=== PATIENT | male | born 1940 | race American Indian/Alaskan Native ===

== ENCOUNTER 2016-11-28 18:57 | Emergency (ER) | payer MEDICARE, MEDICAID ==
[2016-11-28] MEDS ORDERED: predniSONE 20 MG Tab PO ONE (20:11)
--- NOTE | 2016-11-28 20:19 | EDM.PDOC ---
ED HPI Trauma - General Chief Complaint: Lower Extremity Injury/Pain Stated Complaint: FOOT PAIN [id number] Time Seen by Provider: 11/28/16 19:05 Source: Reports: Patient History Limitations: Reports: No limitations - History of Present Illness INITIAL COMMENTS - FREE TEXT/NARRATIVE: c/o waking with pain to left ankle yesterday increased pain with weight bearing. Using crutches at home. Denies injury. remote fracture with hardware years ago. Has hydrocodone at home for back pain but does not want to use it. No known hx of gout Occurred When: yesterday Allergies/ADRs: Allergies No Known Allergies Allergy (Verified 11/28/16 19:17) Home Medications: Ambulatory Orders Lisinopril [Lisinopril] 1 tab PO BID 09/06/13 [Confirmed 11/28/16] Apixaban [Eliquis] 1 tab PO BID 10/14/14 [Confirmed 11/28/16] Furosemide 1 tab PO BID 10/14/14 [Confirmed 11/28/16] Amiodarone [Pacerone] 100 mg PO DAILY 08/16/15 [Confirmed 11/28/16] Metoprolol Succinate 50 mg PO BID 08/16/15 [Confirmed 11/28/16] Aspirin [[place] Aspirin] 81 mg PO DAILY 11/28/16 [Confirmed 11/28/16] Past Medical History Cardiovascular History: Reports: Hypertension Musculoskeletal History: Reports: Back pain, chronic - Past Surgical History Cardiovascular Surgical History: Reports: Other (see below) Other Cardiovascular Surgeries/Procedures: 80% occusion in artery in neck Social & Family History - Tobacco Use Smoking Status *Q: Current Every Day Smoker Years of Tobacco use: 50 Packs/Tins Daily: 20 Used Tobacco, but Quit: No Second Hand Smoke Exposure: Yes - Caffeine Use Caffeine Use: Reports: Coffee - Alcohol Use Days Per Week of Alcohol Use: 0 Number of Drinks Per Day: 1 Total Drinks Per Week: 0 Date of Last Drink: 11/07/16 - Recreational Drug Use Recreational Drug Use: No Review of Systems - Review of Systems Review Of Systems: See Below Constitutional: Reports: no symptoms Respiratory: Reports: No Symptoms Cardiovascular: Reports: no symptoms Musculoskeletal: Reports: back pain (chronic), joint pain (left ankle) Skin: Reports: no symptoms Trauma Exam - Physical Exam Exam: See Below Exam Limited By: No limitations General Appearance: Reports: alert, mild distress Head: Reports: atraumatic, normocephalic Eyes: bilateral eye: EOMI Ears: Reports: normal external exam Nose: Reports: normal inspection Throat/Mouth: Reports: Normal inspection Neck: Reports: non-tender, full range of motion Respiratory Exam: Reports: no respiratory distress, lungs clear Cardiovascular: Reports: normal peripheral pulses, regular rate, rhythm Extremities: Reports: no evidence of injury, normal range of motion, pain with movement, tenderness (left ankle), unable to bear weight, other (mild swelling warmth no redness). Denies: joint effusion Skin: Reports: Warm/dry. Denies: Ecchymosis Course - Vital Signs Last Recorded V/S: Last Vital Signs Temp 98.6 F 11/28/16 20:31 Pulse 87 11/28/16 20:31 Resp 16 11/28/16 20:31 BP 157/80 H 11/28/16 20:31 Pulse Ox 98 11/28/16 20:31 - Orders/Labs/Meds Labs: Laboratory Tests 11/28/16 11/28/16 Range/Units 19:30 19:30 WBC 8.8 (5.0-10.0) 10^3/uL RBC 3.60 L (4.6-6.2) 10^6/uL Hgb 11.2 L (14.0-18.0) g/dL Hct 34.4 L (40.0-54.0) % MCV 95.6 (80-100) fL MCH 31.1 (27.0-34.0) pg MCHC 32.6 L (33.0-35.0) g/dL Plt Count 171 (150-450) 10^3/uL Neut % (Auto) 67.8 (42.2-75.2) % Lymph % (Auto) 17.4 L (20.5-50.1) % [place] % (Auto) 13.4 H (2-8) % Eos % (Auto) 0.8 L (1.0-3.0) % Baso % (Auto) 0.6 (0.0-1.0) % Sodium 136 (135-145) mmol/L Potassium 4.5 (3.6-5.0) mmol/L Chloride 102 (101-111) mmol/L Carbon Dioxide 26.0 (21.0-31.0) mmol/L Anion Gap 12.5 BUN 41 H (7-18) mg/dL Creatinine 2.2 H (0.6-1.3) mg/dL Est Cr Clr Drug Dosing 25.78 mL/min Estimated GFR (MDRD) 29 BUN/Creatinine Ratio 18.63 Glucose 105 (74-105) mg/dL Uric Acid 11.1 H (2.6-7.2) mg/dL Calcium 9.2 (8.4-10.2) mg/dl Total Bilirubin 0.5 (0.2-1.0) mg/dL AST 20 (10-42) IU/L ALT 17 (10-60) IU/L Alkaline Phosphatase 79 (42-121) IU/L Total Protein 7.2 (6.7-8.2) g/dl Albumin 4.0 (3.2-5.5) g/dl Globulin 3.2 Albumin/Globulin Ratio 1.25 Meds: Medications Discontinued Medications Generic Name Dose Route Start Last Admin Trade Name Sanjuana PRN Reason Stop Dose Admin Prednisone 30 mg 11/28/16 20:11 11/28/16 20:28 Prednisone PO 11/28/16 20:12 30 mg ONETIME ONE Administration Departure - Departure Time of Disposition: 20:14 Disposition: Home, Self-Care 01 Condition: good Clinical Impression: Left ankle pain Qualifiers: Chronicity: acute Qualified Code(s): M25.572 - Pain in left ankle and joints of left foot Gout attack Qualifiers: Gout site: ankle Gout etiology: unspecified cause Laterality: left Qualified Code(s): M10.9 - Gout, unspecified Instructions: Gout, [id number] Referrals: PCP,None [Primary Care Provider] - Forms: ED Department Discharge Additional Instructions: prednisone 30mg daily for 4 days crutches as needed clinic follow up next week if not improving
[2016-11-28 20:42] VITALS: BP 157/80
== END 2016-11-28 20:42 | disposition home or self-care (01) ==
LOC: DL.ED 18:57
DX: M25.572 Pain in left ankle and joints of left foot (principal); M10.9 Gout, unspecified; I10 Essential (primary) hypertension; F17.210 Nicotine dependence, cigarettes, uncomplicated; Z79.82 Long term (current) use of aspirin; Z79.899 Other long term (current) drug therapy
CPT/HCPCS: 36415; 73610; 80053; 84550; 85025; 99283; A9270

== ENCOUNTER 2017-06-07 13:09 | Emergency (ER) | payer MEDICARE, MEDICAID ==
[2017-06-07 13:15] VITALS: BP 128/77
[2017-06-07] MEDS ORDERED: Acetaminophen 500 MG Tab PO ONE (13:30)
--- NOTE | 2017-06-07 13:31 | EDM.PDOC ---
ED HPI GENERAL MEDICAL PROBLEM - General Chief Complaint: ENT Problem Stated Complaint: [id number] JAW PAIN Time Seen by Provider: 06/07/17 13:26 Source of Information: Reports: Patient History Limitations: Reports: No Limitations - History of Present Illness INITIAL COMMENTS - FREE TEXT/NARRATIVE: 77 yo white male c/o right jaw and right ear pain since Thursday (3 days). No trauma Onset Date: 06/05/17 Onset Time: 18:00 Duration: Day(s): Location: Reports: Face Quality: Reports: Ache Severity: Moderate Improves with: Reports: Rest Worsens with: Reports: Eating Associated Symptoms: Reports: No Other Symptoms - Related Data Allergies Allergy/AdvReac Type Severity Reaction Status Date / Time No Known Allergies Allergy Verified 06/07/17 13:11 Home Meds: Home Meds Lisinopril [Lisinopril] 1 tab PO BID 09/06/13 [History] Apixaban [Eliquis] 1 tab PO BID 10/14/14 [History] Furosemide 1 tab PO BID 10/14/14 [History] Amiodarone [Pacerone] 100 mg PO DAILY 08/16/15 [History] Metoprolol Succinate 50 mg PO BID 08/16/15 [History] Aspirin [[place] Aspirin] 81 mg PO DAILY 11/28/16 [History] Past Medical History HEENT History: Reports: None Cardiovascular History: Reports: Hypertension Respiratory History: Reports: None Gastrointestinal History: Reports: None Genitourinary History: Reports: None Musculoskeletal History: Reports: Back Pain, Chronic Neurological History: Reports: None Psychiatric History: Reports: None Endocrine/Metabolic History: Reports: None Hematologic History: Reports: None Immunologic History: Reports: None Oncologic (Cancer) History: Reports: None Dermatologic History: Reports: None - Past Surgical History Cardiovascular Surgical History: Reports: Other (See Below) Social & Family History - Tobacco Use Smoking Status *Q: Heavy Tobacco Smoker Years of Tobacco use: 45 Packs/Tins Daily: 1 Used Tobacco, but Quit: No Second Hand Smoke Exposure: Yes - Caffeine Use Caffeine Use: Reports: Coffee - Alcohol Use Days Per Week of Alcohol Use: 0 Number of Drinks Per Day: 1 Total Drinks Per Week: 0 - Recreational Drug Use Recreational Drug Use: No ED ROS GENERAL - Review of Systems Review Of Systems: See Below Constitutional: Reports: No Symptoms HEENT: Reports: Ear Pain, Other (right jaw pain) Respiratory: Reports: No Symptoms Cardiovascular: Reports: No Symptoms Endocrine: Reports: No Symptoms GI/Abdominal: Reports: No Symptoms : Reports: No Symptoms Musculoskeletal: Reports: Other (right jaw pain) Skin: Reports: No Symptoms Neurological: Reports: No Symptoms Psychiatric: Reports: No Symptoms Hematologic/Lymphatic: Reports: No Symptoms Immunologic: Reports: No Symptoms ED EXAM, GENERAL - Physical Exam Exam: See Below Exam Limited By: No Limitations General Appearance: Alert, No Apparent Distress Eye Exam: Bilateral Eye: PERRL Ears: Normal External Exam Ear Exam: Bilateral Ear: TM normal Nose: Normal Inspection Throat/Mouth: Normal Inspection, Normal Lips, Other (tenderness to right TMJ) Head: Atraumatic, Normocephalic Neck: Normal Inspection, Supple Respiratory/Chest: No Respiratory Distress, Lungs Clear Cardiovascular: Normal Peripheral Pulses, Regular Rate, Rhythm, No Edema Peripheral Pulses: 2+: Brachial (L), Brachial (R) GI/Abdominal: Normal Bowel Sounds, Soft Back Exam: Normal Inspection Extremities: Normal Inspection, Normal Range of Motion Neurological: Alert, Oriented, CN II-XII Intact Psychiatric: Normal Affect Skin Exam: Warm, Dry Lymphatic: No Adenopathy Course - Vital Signs Last Recorded V/S: Last Vital Signs Temp 36.3 C 06/07/17 13:12 Pulse 76 06/07/17 13:12 Resp 18 06/07/17 13:12 BP 128/77 06/07/17 13:12 Pulse Ox 99 06/07/17 13:12 - Orders/Labs/Meds Orders: Active Orders 24 hr Category Date Time Status TMJ Open And Closed Bi [CR] Urgent Exams 06/07/17 13:30 Taken Meds: Medications Discontinued Medications Generic Name Dose Route Start Last Admin Trade Name Marekq PRN Reason Stop Dose Admin Acetaminophen 1,000 mg 06/07/17 13:30 06/07/17 13:33 Tylenol Extra Strength PO 06/07/17 13:31 1,000 mg ONETIME ONE Administration Departure - Departure Time of Disposition: 13:56 Disposition: Home, Self-Care 01 Condition: Good Clinical Impression: TMJ (temporomandibular joint disorder) - Discharge Information Forms: ED Department Discharge Additional Instructions: Wear Bite Block when sleep Minimize chewing on right side For Pain: TRAMADOL 50mg TID # 30 F/U w/ PCP for further evaluation and possible MRI - My Orders Last 24 Hours: My Active Orders 06/07/17 13:30 TMJ Open And Closed Bi [CR] Urgent - Assessment/Plan Last 24 Hours: My Active Orders 06/07/17 13:30 TMJ Open And Closed Bi [CR] Urgent
== END 2017-06-07 14:04 | disposition home or self-care (01) ==
LOC: DL.ED 13:09
DX: M26.601 Right temporomandibular joint disorder, unspecified (principal); I10 Essential (primary) hypertension; F17.210 Nicotine dependence, cigarettes, uncomplicated; Z79.82 Long term (current) use of aspirin; Z79.899 Other long term (current) drug therapy
CPT/HCPCS: 70330; 99283; A9270

== ENCOUNTER 2018-03-26 07:00 | Day surgery (SDC) | payer MEDICARE, MEDICAID ==
[~2018-03-26 07:00] MED LIST: Dextrose 5%-0.45% NaCl 1,000 ML IV SCH; Midazolam 1 MG/ML 2 ML SDV ONE; Sodium Chloride 0.9% 10 ML Syringe FLUSH PRN; fentaNYL 100 MCG/2 ML SDV ONE
[2018-03-26] MEDS ORDERED: Midazolam 1 MG/ML 2 ML SDV IV ONE ×3 (07:01→08:04)
[2018-03-26] MEDS ORDERED: fentaNYL 100 MCG/2 ML SDV IV ONE ×3 (07:01→08:02)
[2018-03-26] MEDS ORDERED: Dextrose 5%-0.45% NaCl 1,000 ML IV SCH (07:45)
[2018-03-26 10:58] VITALS: BP 111/56
--- NOTE | 2018-03-26 13:25 | OR ---
DATE: 03/26/2018 PROCEDURES: Esophagogastroduodenoscopy and multiple pinch biopsies. INSTRUMENT USED: GIF-H180 Olympus video panendoscope. PREMEDICATIONS: No oral topical anesthesia used. Fentanyl 100 mcg intravenous, Versed 1.5 mg intravenous. Nasal O2 cannula. The procedure was done under pulse oximetry, BP recording, and mammalogist. INDICATIONS: The patient with positive FIT and iron-deficiency anemia unexplained. DESCRIPTION OF PROCEDURE: Esophagogastroduodenoscopy is performed for detection of any active erosive lesions. Geller esophagus and/or malignancy also under consideration. H. pylori status to be determined. Endoscopic hemostasis therapy if needed. The scope was passed with ease. Adequate visualization of the esophagus was made from proximal to distal areas. No upper esophageal lesions identified. No distal esophageal stricture. No uphill or downhill esophageal varices. No Jina-Garcia tear. No evidence of erosive esophagitis by [place] criteria. No esophageal polyp or tumor mass identified. Z-line was seen at around 40 cm distal to the oral verge, configuration consistent with grade 1 by ZAP classification. No proximal gastric varices noted. Gastric fundus examination by retroflexion showed no polypoid lesions. No gastric ulcer, malignant mass, or vascular ectasia identified. Gastric antral erosions were noted without bleeding from them. Duodenal bulb showed no ulcer. Visualized second part of the duodenum was unremarkable. Multiple pinch biopsies were taken from the gastric antrum and proximal body and sent for PyloriTek test for H. pylori, and if negative in an hour, the tissue is to be sent for histopathology. No bleeding was noted from any of the visualized areas at the completion of examination. Photographs were taken of the duodenal bulb, gastric antrum, fundus, and distal esophagus. IMPRESSION: Gastric antral erosions. The patient tolerated the procedure well. [facility] /[id number]
== END 2018-03-26 10:20 | disposition home or self-care (01) ==
LOC: DL.ENDO 07:00
PROVIDERS: ATTEND Internal Medicine Gastroenterology
DX: R19.5 Other fecal abnormalities (principal); D50.9 Iron deficiency anemia, unspecified; B96.81 Helicobacter pylori [H. pylori] as the cause of diseases classified elsewhere; K25.9 Gastric ulcer, unspecified as acute or chronic, without hemorrhage or perforation; F17.210 Nicotine dependence, cigarettes, uncomplicated; I12.9 Hypertensive chronic kidney disease with stage 1 through stage 4 chronic kidney disease, or unspecified chronic kidney disease; N18.9 Chronic kidney disease, unspecified; J44.9 Chronic obstructive pulmonary disease, unspecified; M19.90 Unspecified osteoarthritis, unspecified site; R73.9 Hyperglycemia, unspecified; E66.09 Other obesity due to excess calories; Z68.36 Body mass index [BMI] 36.0-36.9, adult; Z79.82 Long term (current) use of aspirin; Z79.899 Other long term (current) drug therapy
CPT/HCPCS: 43239; 87077; J2250; J3010; J7042

== ENCOUNTER 2018-10-31 22:10 | Emergency (ER) | payer MEDICARE, MEDICAID ==
--- NOTE | 2018-10-31 22:22 | EDM.PDOC ---
ED HPI GENERAL MEDICAL PROBLEM - General Stated Complaint: CHEST PAINS,SOB Time Seen by Provider: 10/31/18 22:20 Source of Information: Reports: Patient History Limitations: Reports: No Limitations - History of Present Illness INITIAL COMMENTS - FREE TEXT/NARRATIVE: gives few weeks h/o CP & SOB, family states pt refused to come in but tonight started feeling worse. Chest Pain Score (Numeric/FACES): 3 - Related Data Allergies Allergy/AdvReac Type Severity Reaction Status Date / Time No Known Allergies Allergy Verified 08/08/18 19:39 Home Meds: Home Meds Apixaban [Eliquis] 5 mg PO BID 10/14/14 [History] Furosemide 40 mg PO BID 10/14/14 [History] Amiodarone [Pacerone] 100 mg PO DAILY 08/16/15 [History] Metoprolol Succinate 50 mg PO BID 08/16/15 [History] Aspirin [[place] Aspirin] 81 mg PO DAILY 11/28/16 [History] Acetaminophen/oxyCODONE [Percocet 325-5 MG] 1 tab PO DAILY PRN 03/25/18 [History ] Ferrous Sulfate 325 mg PO BID 03/25/18 [History] Omeprazole 20 mg PO DAILY 05/31/18 [History] Past Medical History HEENT History: Reports: None Cardiovascular History: Reports: Arrhythmia, Cardiomyopathy, High Cholesterol, Hypertension, Other (See Below) Other Cardiovascular History: R) subclavian artery stenosis Respiratory History: Reports: COPD Gastrointestinal History: Reports: GERD Genitourinary History: Reports: Chronic Renal Insuffiency Musculoskeletal History: Reports: Arthritis, Back Pain, Chronic Neurological History: Reports: None Psychiatric History: Reports: None Endocrine/Metabolic History: Reports: Diabetes, Type II Hematologic History: Reports: None Immunologic History: Reports: None Oncologic (Cancer) History: Reports: None Dermatologic History: Reports: None - Infectious Disease History Infectious Disease History: Reports: None - Past Surgical History Head Surgeries/Procedures: Reports: None HEENT Surgical History: Reports: Cataract Surgery Cardiovascular Surgical History: Reports: Other (See Below) Other Cardiovascular Surgeries/Procedures: 80% 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 ED EXAM, GENERAL - Physical Exam Exam: See Below Exam Limited By: No Limitations General Appearance: Alert, WD/WN, Mild Distress, Other (discomfort) Ears: Hearing Grossly Normal Throat/Mouth: Normal Voice, No Airway Compromise Head: Atraumatic Neck: Non-Tender, Full Range of Motion Respiratory/Chest: No Respiratory Distress, Rhonchi Cardiovascular: Regular Rate, Rhythm GI/Abdominal: Soft, Non-Tender Extremities: Pedal Edema, Other (3+ bolateral) Neurological: Alert, Oriented, Normal Cognition, No Motor/Sensory Deficits Psychiatric: Normal Affect, Normal Mood Skin Exam: Warm, Dry, Normal Color Lymphatic: No Adenopathy Course - Orders/Labs/Meds Labs: Laboratory Tests 10/31/18 10/31/18 10/31/18 Range/Units 22:20 22:20 22:20 WBC 7.9 (5.0-10.0) 10^3/uL RBC 3.38 L (4.6-6.2) 10^6/uL Hgb 10.9 L (14.0-18.0) g/dL Hct 33.7 L (40.0-54.0) % MCV 99.7 (80-100) fL MCH 32.2 (27.0-34.0) pg MCHC 32.3 L (33.0-35.0) g/dL Plt Count 158 (150-450) 10^3/uL Neut % (Auto) 57.6 (42.2-75.2) % Lymph % (Auto) 24.1 (20.5-50.1) % [place] % (Auto) 16.4 H (2-8) % Eos % (Auto) 1.4 (1.0-3.0) % Baso % (Auto) 0.5 (0.0-1.0) % D-Dimer, Quantitative 315 (0-400) ng/mL Sodium 136 (135-145) mmol/L Potassium 4.1 (3.6-5.0) mmol/L Chloride 105 (101-111) mmol/L Carbon Dioxide 24.0 (21.0-31.0) mmol/L Anion Gap 11.1 BUN 26 H (7-18) mg/dL Creatinine 1.4 H (0.6-1.3) mg/dL Est Cr Clr Drug Dosing TNP Estimated GFR (MDRD) 49 BUN/Creatinine Ratio 18.57 Glucose 109 H (74-105) mg/dL Lactic Acid (0.5-2.2) mmol/L Calcium 8.8 (8.4-10.2) mg/dl Total Bilirubin 0.9 (0.2-1.0) mg/dL AST 27 (10-42) IU/L ALT 25 (10-60) IU/L Alkaline Phosphatase 105 (42-121) IU/L Troponin I < 0.02 (0.00-0.02) ng/ml B-Natriuretic Peptide 423 H (0-100) pg/ml Total Protein 7.1 (6.7-8.2) g/dl Albumin 3.9 (3.2-5.5) g/dl Globulin 3.2 Albumin/Globulin Ratio 1.22 10/31/18 Range/Units 22:20 WBC (5.0-10.0) 10^3/uL RBC (4.6-6.2) 10^6/uL Hgb (14.0-18.0) g/dL Hct (40.0-54.0) % MCV (80-100) fL MCH (27.0-34.0) pg MCHC (33.0-35.0) g/dL Plt Count (150-450) 10^3/uL Neut % (Auto) (42.2-75.2) % Lymph % (Auto) (20.5-50.1) % [place] % (Auto) (2-8) % Eos % (Auto) (1.0-3.0) % Baso % (Auto) (0.0-1.0) % D-Dimer, Quantitative (0-400) ng/mL Sodium (135-145) mmol/L Potassium (3.6-5.0) mmol/L Chloride (101-111) mmol/L Carbon Dioxide (21.0-31.0) mmol/L Anion Gap BUN (7-18) mg/dL Creatinine (0.6-1.3) mg/dL Est Cr Clr Drug Dosing Estimated GFR (MDRD) BUN/Creatinine Ratio Glucose (74-105) mg/dL Lactic Acid 1.7 (0.5-2.2) mmol/L Calcium (8.4-10.2) mg/dl Total Bilirubin (0.2-1.0) mg/dL AST (10-42) IU/L ALT (10-60) IU/L Alkaline Phosphatase (42-121) IU/L Troponin I (0.00-0.02) ng/ml B-Natriuretic Peptide (0-100) pg/ml Total Protein (6.7-8.2) g/dl Albumin (3.2-5.5) g/dl Globulin Albumin/Globulin Ratio Meds: Medications Discontinued Medications Generic Name Dose Route Start Last Admin Trade Name Marekq PRN Reason Stop Dose Admin Furosemide 20 mg 10/31/18 23:26 10/31/18 23:34 Lasix IVPUSH 10/31/18 23:27 20 mg ONETIME ONE Administration - Re-Assessments/Exams Free Text/Narrative Re-Assessment/Exam: 10/31/18 23:27 results discussed with pt who is feeling better since being here with his legs up. Departure - Departure Time of Disposition: 23:35 Disposition: Home, Self-Care 01 Condition: Fair Clinical Impression: Leg edema, History of CHF (congestive heart failure) Forms: ED Department Discharge Additional Instructions: 1) elevate legs as much as possible 2) see family doctor tomorrow for CAROTID DUPLEX STUDY 3) recheck as needed
[2018-10-31 22:42] LABS: ANION GAP 11.1; CHLORIDE,CL 105 mmol/L (101-111); SODIUM,NA 136 mmol/L (135-145)
[2018-10-31] MEDS ORDERED: Furosemide 20 MG/2 ML VIAL IVPUSH ONE (23:26)
== END 2018-10-31 23:38 | disposition home or self-care (01) ==
LOC: DL.ED 22:10
DX: I13.0 Hypertensive heart and chronic kidney disease with heart failure and stage 1 through stage 4 chronic kidney disease, or unspecified chronic kidney disease (principal); I50.9 Heart failure, unspecified; E11.22 Type 2 diabetes mellitus with diabetic chronic kidney disease; N18.9 Chronic kidney disease, unspecified; E78.00 Pure hypercholesterolemia, unspecified; K21.9 Gastro-esophageal reflux disease without esophagitis; J44.9 Chronic obstructive pulmonary disease, unspecified; Z79.899 Other long term (current) drug therapy; Z79.01 Long term (current) use of anticoagulants; Z79.82 Long term (current) use of aspirin
CPT/HCPCS: 36415; 71045; 80053; 83605; 83880; 84484; 85025; 85379; 93005; 96374; 99285; J1940

== ENCOUNTER 2019-01-30 20:57 | Emergency (ER) | payer MEDICARE, MEDICAID | END 2019-01-30 21:30 | disposition left against medical advice (07) | LOC: DL.ED 20:57 | DX: Z53.21 Procedure and treatment not carried out due to patient leaving prior to being seen by health care provider (principal) ==

== ENCOUNTER 2019-12-18 20:50 | Emergency (ER) | payer MEDICARE, MEDICAID ==
--- NOTE | 2019-12-18 21:10 | EDM.PDOC ---
ED HPI GENERAL MEDICAL PROBLEM - General Chief Complaint: Cardiovascular Problem Stated Complaint: AMBULANCE Time Seen by Provider: 12/18/19 20:50 Source of Information: Reports: Patient, EMS History Limitations: Reports: No Limitations - History of Present Illness INITIAL COMMENTS - FREE TEXT/NARRATIVE: ED via [facility] with c/o pain to lower legs with swelling increasing past 4 days. Difficulty with transfers due to discomfort. Reports mostly in wheelchair. Less urine than normal. Reports compliance with medication. No chest pain. Reports hx of gout with similar sx. Has not taken anything for pain. No fever, No SOB or cough. Chronic swelling to lower legs. Pain to left knee with tx. No injuries or falls. Has oxycodone at home which uses for chronic back pain. Bilateral Lower Leg Pain Score (Numeric/FACES): 8 - Related Data Allergies Allergy/AdvReac Type Severity Reaction Status Date / Time No Known Allergies Allergy Verified 08/08/18 19:39 Home Meds: Home Meds Apixaban [Eliquis] 5 mg PO BID 10/14/14 [History] Furosemide 40 mg PO BID 10/14/14 [History] Amiodarone [Pacerone] 100 mg PO DAILY 08/16/15 [History] Metoprolol Succinate 50 mg PO BID 08/16/15 [History] Aspirin [[place] Aspirin] 81 mg PO DAILY 11/28/16 [History] Acetaminophen/oxyCODONE [Percocet 325-5 MG] 1 tab PO DAILY PRN 03/25/18 [History ] Ferrous Sulfate 325 mg PO BID 03/25/18 [History] Omeprazole 20 mg PO DAILY 05/31/18 [History] Past Medical History HEENT History: Reports: None Cardiovascular History: Reports: Arrhythmia, Cardiomyopathy, High Cholesterol, Hypertension, Other (See Below) Other Cardiovascular History: R) subclavian artery stenosis Respiratory History: Reports: COPD Gastrointestinal History: Reports: GERD Genitourinary History: Reports: Chronic Renal Insuffiency Musculoskeletal History: Reports: Arthritis, Back Pain, Chronic Neurological History: Reports: None Psychiatric History: Reports: None Endocrine/Metabolic History: Reports: Diabetes, Type II Hematologic History: Reports: None Immunologic History: Reports: None Oncologic (Cancer) History: Reports: None Dermatologic History: Reports: None - Infectious Disease History Infectious Disease History: Reports: None - Past Surgical History Head Surgeries/Procedures: Reports: None HEENT Surgical History: Reports: Cataract Surgery Cardiovascular Surgical History: Reports: Other (See Below) Other Cardiovascular Surgeries/Procedures: 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 ED EXAM, GENERAL - Physical Exam Exam: See Below Exam Limited By: No Limitations General Appearance: Alert, Mild Distress, Obese Eye Exam: Bilateral Eye: EOMI Ears: Normal External Exam, Hearing Loss Nose: Nasal Drainage (scant cloudy) Throat/Mouth: Normal Voice Head: Atraumatic, Normocephalic Neck: Normal Inspection, Tender Lateral Respiratory/Chest: Decreased Breath Sounds, Wheezing (intermittent left mid) Cardiovascular: Normal Peripheral Pulses, Irregularly Irregular. No: No Edema ( 4+ bilateral lower) GI/Abdominal: Normal Bowel Sounds Back Exam: Full Range of Motion Extremities: Normal Inspection, Normal Range of Motion Neurological: Alert, Oriented, Normal Cognition Psychiatric: Normal Affect Skin Exam: Warm, Dry, Intact Course - Vital Signs Last Recorded V/S: Last Vital Signs Temp 99.6 F 12/18/19 21:00 Pulse 97 12/18/19 21:00 Resp 21 H 12/18/19 21:00 BP 139/64 12/18/19 21:00 Pulse Ox 96 12/18/19 21:00 - Orders/Labs/Meds Orders: Active Orders 24 hr Category Date Time Status EKG Documentation Completion [RC] URGENT Care 12/18/19 20:41 Active Labs: Laboratory Tests 12/18/19 12/18/19 12/18/19 Range/Units 20:58 20:58 20:58 WBC 10.7 H (5.0-10.0) 10^3/uL RBC 3.26 L (4.6-6.2) 10^6/uL Hgb 10.8 L (14.0-18.0) g/dL Hct 32.1 L (40.0-54.0) % MCV 98.5 (80-100) fL MCH 33.1 (27.0-34.0) pg MCHC 33.6 (33.0-35.0) g/dL Plt Count 173 (150-450) 10^3/uL Neut % (Auto) 69.5 (42.2-75.2) % Lymph % (Auto) 10.3 L (20.5-50.1) % [place] % (Auto) 19.9 H (2-8) % Eos % (Auto) 0.1 L (1.0-3.0) % Baso % (Auto) 0.2 (0.0-1.0) % Add Manual Diff Yes Neutrophils % (Manual) 65 (42-75) % Band Neutrophils % 8 % Lymphocytes % (Manual) 9 L (20-50) % Monocytes % (Manual) 18 H (2-8) % PT 11.2 (9.0-12.0) SEC INR 1.2 (0.9-1.2) Sodium 135 L (136-145) mmol/L Potassium 4.1 (3.5-5.1) mmol/L Chloride 97 L (98-107) mmol/L Carbon Dioxide 30 (21-32) mmol/L Anion Gap 12.1 (7-13) mEq/L BUN 47 H (7-18) mg/dL Creatinine 2.38 H (0.70-1.30) mg/dL Est Cr Clr Drug Dosing 22.71 mL/min Estimated GFR (MDRD) 27 BUN/Creatinine Ratio 19.7 (No establ ref range) Glucose 130 H (74-99) mg/dL Uric Acid (3.5-7.2) mg/dL Calcium 9.1 (8.5-10.1) mg/dL Magnesium 2.3 (1.8-2.4) mg/dL Total Bilirubin 0.7 (0.2-1.0) mg/dL AST 18 (15-37) U/L ALT 18 (16-63) U/L Alkaline Phosphatase 108 (46-116) U/L Troponin I < 0.017 (0.000-0.056) ng/mL B-Natriuretic Peptide 367 H (0-100) pg/ml Total Protein 7.3 (6.4-8.2) g/dL Albumin 3.0 L (3.4-5.0) g/dL Globulin 4.3 Albumin/Globulin Ratio 0.70 05/10/20 Range/Units 20:58 WBC (5.0-10.0) 10^3/uL RBC (4.6-6.2) 10^6/uL Hgb (14.0-18.0) g/dL Hct (40.0-54.0) % MCV (80-100) fL MCH (27.0-34.0) pg MCHC (33.0-35.0) g/dL Plt Count (150-450) 10^3/uL Neut % (Auto) (42.2-75.2) % Lymph % (Auto) (20.5-50.1) % [place] % (Auto) (2-8) % Eos % (Auto) (1.0-3.0) % Baso % (Auto) (0.0-1.0) % Add Manual Diff Neutrophils % (Manual) (42-75) % Band Neutrophils % % Lymphocytes % (Manual) (20-50) % Monocytes % (Manual) (2-8) % PT (9.0-12.0) SEC INR (0.9-1.2) Sodium (136-145) mmol/L Potassium (3.5-5.1) mmol/L Chloride (98-107) mmol/L Carbon Dioxide (21-32) mmol/L Anion Gap (7-13) mEq/L BUN (7-18) mg/dL Creatinine (0.70-1.30) mg/dL Est Cr Clr Drug Dosing mL/min Estimated GFR (MDRD) BUN/Creatinine Ratio (No establ ref range) Glucose (74-99) mg/dL Uric Acid 10.5 H (3.5-7.2) mg/dL Calcium (8.5-10.1) mg/dL Magnesium (1.8-2.4) mg/dL Total Bilirubin (0.2-1.0) mg/dL AST (15-37) U/L ALT (16-63) U/L Alkaline Phosphatase (46-116) U/L Troponin I (0.000-0.056) ng/mL B-Natriuretic Peptide (0-100) pg/ml Total Protein (6.4-8.2) g/dL Albumin (3.4-5.0) g/dL Globulin Albumin/Globulin Ratio Meds: Medications Discontinued Medications Generic Name Dose Route Start Last Admin Trade Name Sanjuana PRN Reason Stop Dose Admin Furosemide 40 mg 12/18/19 21:23 12/18/19 21:39 Lasix IVPUSH 12/18/19 21:24 40 mg NOW ONE Administration Oxycodone/Acetaminophen 1 tab 12/18/19 21:24 12/18/19 21:42 Percocet 325-5 Mg PO 12/18/19 21:25 1 tab ONETIME ONE Administration Prednisone 40 mg 12/18/19 22:03 12/18/19 22:09 Prednisone PO 12/18/19 22:04 40 mg ONETIME ONE Administration Departure - Departure Time of Disposition: 21:57 Disposition: Home, Self-Care 01 Condition: Good Clinical Impression: Leg edema Gout attack Qualifiers: Gout site: ankle Gout etiology: unspecified cause Laterality: unspecified laterality Qualified Code(s): M10.9 - Gout, unspecified CHF (congestive heart failure) Qualifiers: Heart failure type: other Qualified Code(s): I50.9 - Heart failure, unspecified Referrals: Aly Guillen MD [Primary Care Provider] - Forms: ED Department Discharge Additional Instructions: prednisone 10mg per instructions Clinic follow up with primary care this week recheck home medications as directed elevate lower extremities, Sepsis Event Note - Focused Exam Vital Signs: Vital Signs Temp Pulse Resp BP Pulse Ox 12/18/19 21:00 99.6 F 97 21 H 139/64 96 12/18/19 20:50 99.6 F 97 21 H 139/64 96 Date Exam was Performed: 12/19/19 Time Exam was Performed: 03:59 - My Orders Last 24 Hours: My Active Orders 12/18/19 20:41 EKG Documentation Completion [RC] URGENT - Assessment/Plan Last 24 Hours: My Active Orders 12/18/19 20:41 EKG Documentation Completion [RC] URGENT
[2019-12-18 21:26] VITALS: BP 139/64; PULSE 97
[2019-12-18 21:28] LABS: ANION GAP 12.1 mEq/L (7-13); CHLORIDE,CL 97 mmol/L (98-107); SODIUM,NA 135 mmol/L (136-145)
[2019-12-18] MEDS: Furosemide 40 MG/4 ML VIAL IVPUSH ONE (21:39)
[2019-12-18] MEDS: Acetaminophen/oxyCODONE 325-5 MG Tab PO ONE (21:42)
[2019-12-18] MEDS: predniSONE 20 MG Tab PO ONE (22:09)
== END 2019-12-18 22:43 | disposition home or self-care (01) ==
LOC: DL.ED 20:50
DX: I13.0 Hypertensive heart and chronic kidney disease with heart failure and stage 1 through stage 4 chronic kidney disease, or unspecified chronic kidney disease (principal); I50.9 Heart failure, unspecified; J44.9 Chronic obstructive pulmonary disease, unspecified; M10.9 Gout, unspecified; E11.22 Type 2 diabetes mellitus with diabetic chronic kidney disease; K21.9 Gastro-esophageal reflux disease without esophagitis; E78.00 Pure hypercholesterolemia, unspecified; Z79.01 Long term (current) use of anticoagulants; Z79.899 Other long term (current) drug therapy; Z79.82 Long term (current) use of aspirin
CPT/HCPCS: 36415; 71045; 80053; 83735; 83880; 84484; 84550; 85025; 85610; 93005; 96374; 99285; A9270; J1940; J7512

== ENCOUNTER 2020-04-08 10:39 | Observation (INO) | payer MEDICARE, MEDICAID ==
--- NOTE | 2020-04-08 11:34 | EDM.PDOC ---
ED HPI GENERAL MEDICAL PROBLEM - General Chief Complaint: Respiratory Problem Stated Complaint: CANT BREATH CHEST HURTS Time Seen by Provider: 04/08/20 11:33 Source of Information: Reports: Patient, RN, RN Notes Reviewed History Limitations: Reports: No Limitations - History of Present Illness INITIAL COMMENTS - FREE TEXT/NARRATIVE: Patient presents to ER with complaint of increased shortness of breath, wheezing, cough with white sputum. Patient admits to history of COPD. States he does not take inhalers or nebulizers at home. States he did see his primary care provider on Thursday, and the symptoms began or Thursday. Patient denies any fever chills, nausea, vomiting, diarrhea. Patient denies any exposure to COVID. Onset: Gradual Onset Date: 04/05/20 - Related Data Allergies Allergy/AdvReac Type Severity Reaction Status Date / Time No Known Allergies Allergy Verified 04/08/20 11:59 Home Meds: Home Meds Apixaban [Eliquis] 5 mg PO BID 10/14/14 [History] Furosemide 40 mg PO BID 10/14/14 [History] Amiodarone [Pacerone] 100 mg PO DAILY 08/16/15 [History] Metoprolol Succinate 50 mg PO BID 08/16/15 [History] Aspirin [[place] Aspirin] 81 mg PO DAILY 11/28/16 [History] Acetaminophen/oxyCODONE [Percocet 325-5 MG] 1 tab PO DAILY PRN 03/25/18 [History] Omeprazole 20 mg PO DAILY 05/31/18 [History] Glimepiride 1 mg PO BEDTIME 04/08/20 [History] atorvaSTATin [Lipitor] 10 mg PO DAILY 04/08/20 [History] Past Medical History HEENT History: Reports: None Cardiovascular History: Reports: Arrhythmia, Cardiomyopathy, High Cholesterol, Hypertension, Other (See Below) Other Cardiovascular History: R) subclavian artery stenosis Respiratory History: Reports: COPD Gastrointestinal History: Reports: GERD Genitourinary History: Reports: Chronic Renal Insuffiency Musculoskeletal History: Reports: Arthritis, Back Pain, Chronic Neurological History: Reports: None Psychiatric History: Reports: None Endocrine/Metabolic History: Reports: Diabetes, Type II Hematologic History: Reports: None Immunologic History: Reports: None Oncologic (Cancer) History: Reports: None Dermatologic History: Reports: None - Infectious Disease History Infectious Disease History: Reports: None - Past Surgical History Head Surgeries/Procedures: Reports: None HEENT Surgical History: Reports: Cataract Surgery Cardiovascular Surgical History: Reports: Other (See Below) Other Cardiovascular Surgeries/Procedures: 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 ED EXAM, GENERAL - Physical Exam Exam: See Below Exam Limited By: No Limitations General Appearance: Alert, WD/WN Eye Exam: Bilateral Eye: EOMI, Normal Inspection Ears: Normal External Exam, Hearing Grossly Normal Nose: Normal Inspection Throat/Mouth: Normal Inspection, Normal Voice, No Airway Compromise Head: Atraumatic, Normocephalic Neck: Normal Inspection, Supple, Non-Tender, Full Range of Motion Respiratory/Chest: Crackles (throughout), Wheezing (throughout) Cardiovascular: Normal Peripheral Pulses, Regular Rate, Rhythm, No Edema, No Gallop, No JVD, No Murmur, No Rub Peripheral Pulses: 2+: Radial (L), Radial (R) GI/Abdominal: Normal Bowel Sounds, Soft, Non-Tender, Distended (Male) Exam: Deferred Rectal (Males) Exam: Deferred Back Exam: Normal Inspection, Full Range of Motion, NT Extremities: Normal Inspection, Normal Range of Motion, Non-Tender, Normal Capillary Refill, No Pedal Edema Neurological: Alert, Oriented, CN II-XII Intact, Normal Cognition, Normal Gait, Normal Reflexes, No Motor/Sensory Deficits Psychiatric: Normal Affect, Normal Mood Skin Exam: Warm, Dry, Intact, Normal Color, No Rash Lymphatic: No Adenopathy Course - Vital Signs Last Recorded V/S: Last Vital Signs Temp 97.1 F 04/08/20 10:45 Pulse 104 H 04/08/20 10:45 Resp 24 H 04/08/20 10:45 BP 180/75 H 04/08/20 10:45 Pulse Ox 94 L 04/08/20 10:45 - Orders/Labs/Meds Orders: Active Orders 24 hr Category Date Time Status Admission Diagnosis [ADT] Stat ADT 04/08/20 12:41 Ordered Admission Status [Patient Status] [ADT] Routine ADT 04/08/20 12:41 Active EKG 12 Lead [EKG Documentation Completion] [RC] STAT Care 04/08/20 11:05 Active RT Aerosol Therapy [RC] ASDIRECTED Care 04/08/20 12:43 Active B-TYPE NATRIURETIC PEPTIDE,BNP [CHEM] Stat Lab 04/08/20 11:08 Received Labs: Laboratory Tests 04/08/20 04/08/20 Range/Units 11:08 11:08 WBC 12.3 H (5.0-10.0) 10^3/uL RBC 4.24 L (4.6-6.2) 10^6/uL Hgb 12.9 L D (14.0-18.0) g/dL Hct 39.6 L (40.0-54.0) % MCV 93.4 D (80-100) fL MCH 30.4 (27.0-34.0) pg MCHC 32.6 L (33.0-35.0) g/dL Plt Count 172 (150-450) 10^3/uL Neut % (Auto) 80.5 H (42.2-75.2) % Lymph % (Auto) 7.6 L (20.5-50.1) % [place] % (Auto) 11.5 H (2-8) % Eos % (Auto) 0.2 L (1.0-3.0) % Baso % (Auto) 0.2 (0.0-1.0) % Add Manual Diff Yes Neutrophils % (Manual) 73 (42-75) % Band Neutrophils % 8 % Lymphocytes % (Manual) 9 L (20-50) % Monocytes % (Manual) 6 (2-8) % Eosinophils % (Manual) 1 (1-3) % Basophils % (Manual) 1 Metamyelocytes % 2 Sodium 136 (136-145) mmol/L Potassium 3.4 L (3.5-5.1) mmol/L Chloride 98 (98-107) mmol/L Carbon Dioxide 28 (21-32) mmol/L Anion Gap 13.4 H (7-13) mEq/L BUN 34 H (7-18) mg/dL Creatinine 2.02 H (0.70-1.30) mg/dL Est Cr Clr Drug Dosing TNP Estimated GFR (MDRD) 32 BUN/Creatinine Ratio 16.8 (No establ ref range) Glucose 176 H (74-99) mg/dL Calcium 9.0 (8.5-10.1) mg/dL Total Bilirubin 0.8 (0.2-1.0) mg/dL AST 17 (15-37) U/L ALT 19 (16-63) U/L Alkaline Phosphatase 136 H (46-116) U/L Total Protein 8.0 (6.4-8.2) g/dL Albumin 3.8 (3.4-5.0) g/dL Globulin 4.2 Albumin/Globulin Ratio 0.9 Meds: Medications Discontinued Medications Generic Name Dose Route Start Last Admin Trade Name Freq PRN Reason Stop Dose Admin Albuterol/Ipratropium 3 ml 04/08/20 12:43 04/08/20 12:47 Duoneb 3.0-0.5 Mg/3 Ml NEB 04/08/20 12:44 3 ml ONETIME ONE Administration Ceftriaxone Sodium 1 gm/ 50 mls @ 100 mls/hr 04/08/20 12:18 04/08/20 12:34 Sodium Chloride IV 04/08/20 12:47 100 mls/hr ONETIME ONE Administration Methylprednisolone Sodium Succinate 125 mg 04/08/20 12:19 04/08/20 12:29 Solu-Medrol IVPUSH 04/08/20 12:20 125 mg ONETIME ONE Administration - Re-Assessments/Exams Free Text/Narrative Re-Assessment/Exam: 04/08/20 12:47 Discussed patient case with Dr. Muller who agreed to accept the patient for observation admission. Departure - Departure Time of Disposition: 12:48 Disposition: Refer to Observation Condition: Fair Clinical Impression: COPD exacerbation - Discharge Information *PRESCRIPTION DRUG MONITORING PROGRAM REVIEWED*: No *COPY OF PRESCRIPTION DRUG MONITORING REPORT IN PATIENT LACY: No Forms: ED Department Discharge Sepsis Event Note (ED) - Evaluation Sepsis Screening Result: Possible Sepsis Risk - Focused Exam Vital Signs: Vital Signs Temp Pulse Resp BP Pulse Ox 04/08/20 10:45 97.1 F 104 H 24 H 180/75 H 94 L - My Orders Last 24 Hours: My Active Orders 04/08/20 11:05 EKG 12 Lead [EKG Documentation Completion] [RC] STAT 04/08/20 11:08 B-TYPE NATRIURETIC PEPTIDE,BNP [CHEM] Stat 04/08/20 12:41 Admission Diagnosis [ADT] Stat Admission Status [Patient Status] [ADT] Routine 04/08/20 12:43 RT Aerosol Therapy [RC] ASDIRECTED - Assessment/Plan Last 24 Hours: My Active Orders 04/08/20 11:05 EKG 12 Lead [EKG Documentation Completion] [RC] STAT 04/08/20 11:08 B-TYPE NATRIURETIC PEPTIDE,BNP [CHEM] Stat 04/08/20 12:41 Admission Diagnosis [ADT] Stat Admission Status [Patient Status] [ADT] Routine 04/08/20 12:43 RT Aerosol Therapy [RC] ASDIRECTED
[2020-04-08 11:56] LABS: ANION GAP 13.4 mEq/L (7-13); CHLORIDE,CL 98 mmol/L (98-107); SODIUM,NA 136 mmol/L (136-145)
--- NOTE | 2020-04-08 12:04 | CR ---
PROCEDURE INFORMATION: Exam: XR Chest, 2 Views Exam date and time: 04/08/2020 11:36 AM Age: 80 years old Clinical indication: Cough and shortness of breath; Additional info: HX copd, cough, SOB TECHNIQUE: Imaging protocol: XR of the chest Views: 2 views. COMPARISON: No relevant prior studies available. FINDINGS: Lungs: Chronic hyperinflation compatible with the stated history of COPD. No emphysema. Pleural space: Normal. Heart/Mediastinum: Normal heart and cardiomediastinal silhouette. Vasculature: Normal pulmonary vessel caliber. Normal aorta. Bones/joints: The bones are intact. IMPRESSION: No acute disease.
[2020-04-08] MEDS ORDERED: cefTRIAXone 1 GM in Sodium Chloride 0.9% 50 ML IV ONE (12:18)
[2020-04-08] MEDS ORDERED: methylPREDNISolone Sodium Succinate 125 MG/2 ML SDV IVPUSH ONE (12:19)
[2020-04-08] MEDS ORDERED: Albuterol/Ipratropium 3.0-0.5 MG/3 ML Neb Soln NEB ONE (12:43)
[2020-04-08] MEDS ORDERED: Ondansetron 4 MG/2 ML SDV IVPUSH PRN (13:58)
[2020-04-08] MEDS ORDERED: Docusate Sodium 100 MG Cap PO PRN (13:58)
[2020-04-08] MEDS ORDERED: Acetaminophen 325 MG Tab PO PRN (13:58)
[2020-04-08] MEDS ORDERED: Magnesium Hydroxide 400 MG/5 ML Susp 30 ML Cup PO PRN (13:58)
--- NOTE | 2020-04-08 14:05 | PCM.HP ---
H&P History of Present Illness - General Date of Service: 04/08/20 Admit Problem/Dx: Admission Diagnosis/Problem Admission Diagnosis/Problem COPD, Moderate chronic obstructive pulmonary disease Source of Information: Patient History Limitations: Reports: No Limitations - History of Present Illness Initial Comments - Free Text/Narative: Zach is 80-year-old male with past medical history significant for COPD, A. fib on chronic anticoagulation, hyperlipidemia, diabetes who presented to the ED for evaluation of increasing shortness of breath x3 days. Per patient shortness of breath started on . Shortness of breath is with both activity and at rest. He reports wheezing. He also reports increased cough from baseline with whitish sputum production. He denies fever, chills. No chest pain. No recent travel or sick contacts. Denies increase in bilateral leg swelling or weight gain. He denies abdominal pain, nausea, vomiting. Patient reports he saw his PCP on Thursday and was doing okay. In the ED vitals were stable. He was hypoxic in the low 90s. He was placed on 2 L of oxygen via nasal cannula with improvement O2 saturation. Labs significant for WBC 12.3, BNP 123, creatinine 2.02, calcium 3.4. Chest x-ray was negative for acute changes. Findings consistent with COPD. He received Solu-Medrol, IV ceftriaxone and neb treatment with improvement. Admission was requested for further management. Onset of Symptoms: Reports: Gradual Duration of Symptoms: Reports: Day(s): Location: Reports: Generalized Quality: Reports: Ache Improves with: Reports: None Worsens with: Reports: None Associated Symptoms: Reports: Cough, cough w sputum, Shortness of Breath - Related Data Allergies/Adverse Reactions: Allergies Allergy/AdvReac Type Severity Reaction Status Date / Time No Known Allergies Allergy Verified 04/08/20 13:46 Home Medications: Home Meds Apixaban [Eliquis] 5 mg PO BID 10/14/14 [History] Furosemide 40 mg PO BID 10/14/14 [History] Amiodarone [Pacerone] 100 mg PO DAILY 08/16/15 [History] Metoprolol Succinate 50 mg PO BID 08/16/15 [History] Aspirin [[place] Aspirin] 81 mg PO DAILY 11/28/16 [History] Acetaminophen/oxyCODONE [Percocet 325-5 MG] 1 tab PO DAILY PRN 03/25/18 [History] Omeprazole 20 mg PO DAILY 05/31/18 [History] Glimepiride 1 mg PO BEDTIME 04/08/20 [History] atorvaSTATin [Lipitor] 10 mg PO DAILY 04/08/20 [History] Past Medical History HEENT History: Reports: None Cardiovascular History: Reports: Arrhythmia, Cardiomyopathy, High Cholesterol, Hypertension, Other (See Below) Other Cardiovascular History: R) subclavian artery stenosis Respiratory History: Reports: COPD Gastrointestinal History: Reports: GERD Genitourinary History: Reports: Chronic Renal Insuffiency Musculoskeletal History: Reports: Arthritis, Back Pain, Chronic Neurological History: Reports: None Psychiatric History: Reports: None Endocrine/Metabolic History: Reports: Diabetes, Type II Hematologic History: Reports: None Immunologic History: Reports: None Oncologic (Cancer) History: Reports: None Dermatologic History: Reports: None - Infectious Disease History Infectious Disease History: Reports: None - Past Surgical History Head Surgeries/Procedures: Reports: None HEENT Surgical History: Reports: Cataract Surgery, Other (See Below) Other HEENT Surgeries/Procedures: eyelid lift Cardiovascular Surgical History: Reports: Other (See Below) Other Cardiovascular Surgeries/Procedures: 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 Respiratory Surgical History: Reports: None GI Surgical History: Reports: None Male Surgical History: Reports: None Musculoskeletal Surgical History: Reports: Other (See Below) Other Musculoskeletal Surgeries/Procedures:: hx of ankle surgery Social & Family History - Family History Family Medical History: Noncontributory - Tobacco Use Smoking Status *Q: Current Every Day Smoker Years of Tobacco use: 60 Packs/Tins Daily: 0.5 - Caffeine Use Caffeine Use: Reports: Coffee Caffeine Use Comment: 32oz H&P Review of Systems - Review of Systems: Review Of Systems: See Below General: Reports: Weight Gain HEENT: Reports: No Symptoms Pulmonary: Reports: Shortness of Breath, Wheezing, Cough, Sputum Cardiovascular: Reports: No Symptoms Gastrointestinal: Reports: No Symptoms Genitourinary: Reports: No Symptoms Musculoskeletal: Reports: Other (LE edema) Skin: Reports: No Symptoms Psychiatric: Reports: No Symptoms Neurological: Reports: No Symptoms Hematologic/Lymphatic: Reports: No Symptoms Immunologic: Reports: No Symptoms Exam - Exam Exam: See Below - Vital Signs Vital Signs: Last Vital Signs Temp 98.2 F 04/08/20 13:38 Pulse 94 04/08/20 13:38 Resp 20 04/08/20 13:38 BP 179/77 H 04/08/20 13:38 Pulse Ox 94 L 04/08/20 13:38 - Exam Quality Assessment: Supplemental Oxygen, DVT Prophylaxis General: Alert, Oriented, 4 HEENT: PERRLA, Hearing Intact, Mucosa Moist & [place], Nares Patent, Normal Nasal Septum, Posterior Pharynx Clear, Conjunctiva Clear, EOMI, EACs Clear, TMs Clear Neck: Supple, Trachea Midline, 2 Lungs: Normal Respiratory Effort, Crackles, Rales, Wheezing Cardiovascular: Regular Rate, Regular Rhythm GI/Abdominal Exam: Normal Bowel Sounds, Soft, Non-Tender, No Organomegaly, No Distention, No Abnormal Bruit, No Mass, Pelvis Stable (Male) Exam: No Hernia, Normal Inspection, Normal Prostate, Circumcised Rectal (Males) Exam: Deferred Back Exam: Normal Inspection, Full Range of Motion, NT Extremities: Pedal Edema Skin: Warm, Dry, Intact Neurological: Cranial Nerves Intact, Reflexes Equal Bilateral Neuro Extensive - Mental Status: Alert, Oriented x3, Normal Mood/Affect, Normal Cognition Neuro Extensive - Motor, Sensory, Reflexes: CN II-XII Intact, Normal Gait, Normal Reflexes Psychiatric: Alert, Normal Affect, Normal Mood - Patient Data Lab Results Last 24 hrs: Laboratory Results - last 24 hr 04/08/20 04/08/20 04/08/20 Range/Units 11:08 11:08 11:08 WBC 12.3 H (5.0-10.0) 10^3/uL RBC 4.24 L (4.6-6.2) 10^6/uL Hgb 12.9 L D (14.0-18.0) g/dL Hct 39.6 L (40.0-54.0) % MCV 93.4 D (80-100) fL MCH 30.4 (27.0-34.0) pg MCHC 32.6 L (33.0-35.0) g/dL Plt Count 172 (150-450) 10^3/uL Neut % (Auto) 80.5 H (42.2-75.2) % Lymph % (Auto) 7.6 L (20.5-50.1) % [place] % (Auto) 11.5 H (2-8) % Eos % (Auto) 0.2 L (1.0-3.0) % Baso % (Auto) 0.2 (0.0-1.0) % Add Manual Diff Yes Neutrophils % (Manual) 73 (42-75) % Band Neutrophils % 8 % Lymphocytes % (Manual) 9 L (20-50) % Monocytes % (Manual) 6 (2-8) % Eosinophils % (Manual) 1 (1-3) % Basophils % (Manual) 1 Metamyelocytes % 2 Sodium 136 (136-145) mmol/L Potassium 3.4 L (3.5-5.1) mmol/L Chloride 98 (98-107) mmol/L Carbon Dioxide 28 (21-32) mmol/L Anion Gap 13.4 H (7-13) mEq/L BUN 34 H (7-18) mg/dL Creatinine 2.02 H (0.70-1.30) mg/dL Est Cr Clr Drug Dosing TNP Estimated GFR (MDRD) 32 BUN/Creatinine Ratio 16.8 (No establ ref range) Glucose 176 H (74-99) mg/dL Calcium 9.0 (8.5-10.1) mg/dL Total Bilirubin 0.8 (0.2-1.0) mg/dL AST 17 (15-37) U/L ALT 19 (16-63) U/L Alkaline Phosphatase 136 H (46-116) U/L B-Natriuretic Peptide 123 H (0-100) pg/ml Total Protein 8.0 (6.4-8.2) g/dL Albumin 3.8 (3.4-5.0) g/dL Globulin 4.2 Albumin/Globulin Ratio 0.9 Result Diagrams: 04/08/20 11:08 04/08/20 11:08 - Problem List (1) Hypokalemia SNOMED Code(s): 97380880 ICD Code: E87.6 - HYPOKALEMIA Status: Acute Current Visit: Yes (2) CHF (congestive heart failure) SNOMED Code(s): 57689102 ICD Code: I50.9 - HEART FAILURE, UNSPECIFIED Status: Acute Current Visit: No Qualifiers: Heart failure type: other Qualified Code(s): I50.9 - Heart failure, unspec ified (3) COPD exacerbation SNOMED Code(s): 797452246 ICD Code: J44.1 - CHRONIC OBSTRUCTIVE PULMONARY DISEASE W (ACUTE) EXACERBATI ON Status: Acute Current Visit: No Problem List Initiated/Reviewed/Updated: Yes Orders Last 24hrs: Active Orders 24 hr Category Date Time Status Admission Diagnosis [ADT] Stat ADT 04/08/20 12:41 Ordered Admission Status [Patient Status] [ADT] Routine ADT 04/08/20 12:41 Active Ambulate [RC] ASDIRECTED Care 04/08/20 13:58 Ordered Height and Weight [RC] DAILY Care 04/08/20 13:58 Ordered Intake and Output [RC] QSHIFT Care 04/08/20 13:59 Ordered Notify Provider Vital Signs [RC] ASDIRECTED Care 04/08/20 13:59 Ordered Oxygen Therapy [RC] PRN Care 04/08/20 13:58 Ordered Pulse Oximetry [RC] PRN Care 04/08/20 13:59 Ordered RT Aerosol Therapy [RC] ASDIRECTED Care 04/08/20 14:01 Ordered VTE/DVT Education [RC] PER UNIT ROUTINE Care 04/08/20 13:58 Ordered Vital Signs [RC] Q4H Care 04/08/20 13:58 Ordered PT Evaluation and Treatment [CONS] Routine Cons 04/08/20 13:58 Ordered Respiratory Care Assess and Treatment [CONS] Routine Cons 04/08/20 13:58 Ordered Heart Healthy Diet [DIET] Diet 04/08/20 Dinner Ordered BASIC METABOLIC PANEL,BMP [CHEM] AM Lab 04/09/20 05:11 Ordered CBC W/O DIFF,HEMOGRAM [HEME] AM Lab 04/09/20 05:11 Ordered CULTURE SPUTUM + SMEAR [RM] Stat Lab 04/08/20 13:58 Ordered GRAM STAIN [RM] Routine Lab 04/08/20 13:58 Ordered MAGNESIUM [CHEM] Routine Lab 04/08/20 13:58 Ordered POTASSIUM,K [CHEM] Routine Lab 04/08/20 13:58 Ordered Acetaminophen [TylenoL] Med 04/08/20 13:58 Ordered 650 mg PO Q4H PRN Albuterol/Ipratropium [DuoNeb 3.0-0.5 MG/3 ML] Med 04/08/20 14:00 Ordered 3 ml NEB Q4H Docusate Sodium [Colace] Med 04/08/20 13:58 Ordered 100 mg PO BID PRN Heparin Sodium Med 04/08/20 21:00 Ordered 5,000 units SUBCUT Q12HR Magnesium Hydroxide [Milk of Magnesia] Med 04/08/20 13:58 Ordered 30 ml PO Q12H PRN Ondansetron [Zofran] Med 04/08/20 13:58 Ordered 4 mg IVPUSH Q6H PRN Resuscitation Status Routine Resus Stat 04/08/20 13:58 Ordered Assessment/Plan Comment:: #Acute respiratory failure with hypoxia due to COPD exacerbation -Patient presented to the ED for evaluation of increasing shortness of breath -Patient required supplemental oxygen 2 L via nasal cannula -Admit to medical floor -Monitor vitals -DuoNebs every 4 hourly -Solu-Medrol 40 mg every 8 hours -Continue home breathing treatments -Continue supplemental oxygen and wean off as able #Leukocytosis likely reactive -Chest x-ray negative for infiltrate -Patient with no fever or chills -For procalcitonin -CBC in the a.m. -Patient on azithromycin #Hypokalemia -Place orally #History of A. fib -Controlled metoprolol. Continue -On Eliquis for anticoagulation. Continue #Hypertension -BP within acceptable limits -Continuehomemedication -Monitor BP closely #Hyperlipidemia -Continue Home meds #Type 2 diabetes -Continue home medication -Add SSI for optimal glycemic control -Accu-Cheks -Hypoglycemic protocol #CHF -Not in exacerbation -Continue home medication -Daily weights #Full code
[2020-04-08] MEDS ORDERED: Acetaminophen/oxyCODONE 325-5 MG Tab PO PRN (14:06)
[2020-04-08] MEDS: Albuterol/Ipratropium 3.0-0.5 MG/3 ML Neb Soln NEB SCH ×3 (14:24→21:23)
[2020-04-08] MEDS: Insulin Lispro 100 Units/ML 3 ML Vial SUBCUT SCH ×2 (17:14→21:23)
[2020-04-08] MEDS ORDERED: Heparin Sodium 5,000 Units/ML Vial SUBCUT SCH (21:00)
[2020-04-08] MEDS: Apixaban 5 MG Tab PO SCH (21:22)
[2020-04-08] MEDS: Metoprolol Succinate 50 MG Tab.ER PO SCH (21:22)
[2020-04-08] MEDS: Glimepiride 2 MG Tab PO SCH (21:22)
[2020-04-08] MEDS: methylPREDNISolone Sodium Succinate 40 MG/1 ML SDV IVPUSH SCH (21:23)
[2020-04-08] MEDS: Furosemide 40 MG Tab PO SCH (21:23)
[2020-04-08] MEDS: Potassium Chloride 10 MEQ Tab.ER PO SCH (21:23)
[2020-04-09] MEDS: Albuterol/Ipratropium 3.0-0.5 MG/3 ML Neb Soln NEB SCH ×6 (02:53→22:57)
[2020-04-09] MEDS: methylPREDNISolone Sodium Succinate 40 MG/1 ML SDV IVPUSH SCH ×3 (04:05→20:07)
[2020-04-09 06:46] LABS: ANION GAP 11.4 mEq/L (7-13)
[2020-04-09] MEDS: Amiodarone 200 MG Tab PO SCH ×2 (07:52→09:23)
[2020-04-09] MEDS: Aspirin 81 MG Tab.Chew PO SCH ×2 (07:52→09:23)
[2020-04-09] MEDS: Potassium Chloride 10 MEQ Tab.ER PO SCH ×3 (07:53→21:45)
[2020-04-09] MEDS: Apixaban 5 MG Tab PO SCH ×3 (07:53→21:38)
[2020-04-09] MEDS: atorvaSTATin 10 MG Tab PO SCH ×2 (07:55→09:24)
[2020-04-09] MEDS: Furosemide 40 MG Tab PO SCH ×3 (07:55→20:19)
[2020-04-09] MEDS: Metoprolol Succinate 50 MG Tab.ER PO SCH ×3 (07:55→21:38)
[2020-04-09] MEDS: Omeprazole 20 MG Cap.CR PO SCH ×2 (07:56→09:24)
[2020-04-09] MEDS: Azithromycin 500 MG in Sodium Chloride 0.9% 250 ML IV SCH ×2 (07:57→09:24)
[2020-04-09] MEDS: Insulin Lispro 100 Units/ML 3 ML Vial SUBCUT SCH ×4 (08:42→21:35)
--- NOTE | 2020-04-09 10:10 | PCM.PN ---
- General Info Date of Service: 04/09/20 Admission Dx/Problem (Free Text): Admission Diagnosis/Problem Admission Diagnosis/Problem COPD, Moderate chronic obstructive pulmonary disease Subjective Update: Zach is 80-year-old male with past medical history significant for COPD, A. fib on chronic anticoagulation, hyperlipidemia, diabetes who presented to the ED for evaluation of increasing shortness of breath x3 days. He was admitted for COPD exacerbation. Chest x-ray was negative for acute changes. Findings consistent with COPD. He was started duo nebs, Solu-Medrol. Today patient was seen and examined. Chart reviewed. He is doing okay. Shortness of breath has improved. On nasal cannula 1 L. Denies chest pain, fever, chills. Functional Status: Reports: Pain Controlled - Review of Systems General: Reports: No Symptoms HEENT: Reports: No Symptoms Pulmonary: Reports: No Symptoms Cardiovascular: Reports: No Symptoms Gastrointestinal: Reports: No Symptoms Genitourinary: Reports: No Symptoms Musculoskeletal: Reports: No Symptoms Skin: Reports: No Symptoms Neurological: Reports: No Symptoms Psychiatric: Reports: No Symptoms - Patient Data Vitals - Most Recent: Last Vital Signs Temp 97.6 F 04/09/20 04:00 Pulse 82 04/09/20 07:55 Resp 20 04/09/20 04:00 BP 126/50 L 04/09/20 07:55 Pulse Ox 93 L 04/09/20 07:22 Weight - Most Recent: 218 lb 9.6 oz I&O - Last 24 Hours: Intake & Output 04/08/20 04/09/20 04/09/20 22:59 06:59 14:59 Intake Total 400 Balance 400 Lab Results Last 24 Hours: Laboratory Results - last 24 hr 04/08/20 04/08/20 04/08/20 Range/Units 11:08 11:08 11:08 WBC 12.3 H (5.0-10.0) 10^3/uL RBC 4.24 L (4.6-6.2) 10^6/uL Hgb 12.9 L D (14.0-18.0) g/dL Hct 39.6 L (40.0-54.0) % MCV 93.4 D (80-100) fL MCH 30.4 (27.0-34.0) pg MCHC 32.6 L (33.0-35.0) g/dL Plt Count 172 (150-450) 10^3/uL Neut % (Auto) 80.5 H (42.2-75.2) % Lymph % (Auto) 7.6 L (20.5-50.1) % [facility] % (Auto) 11.5 H (2-8) % Eos % (Auto) 0.2 L (1.0-3.0) % Baso % (Auto) 0.2 (0.0-1.0) % Add Manual Diff Yes Neutrophils % (Manual) 73 (42-75) % Band Neutrophils % 8 % Lymphocytes % (Manual) 9 L (20-50) % Monocytes % (Manual) 6 (2-8) % Eosinophils % (Manual) 1 (1-3) % Basophils % (Manual) 1 Metamyelocytes % 2 Sodium 136 (136-145) mmol/L Potassium 3.4 L (3.5-5.1) mmol/L Chloride 98 (98-107) mmol/L Carbon Dioxide 28 (21-32) mmol/L Anion Gap 13.4 H (7-13) mEq/L BUN 34 H (7-18) mg/dL Creatinine 2.02 H (0.70-1.30) mg/dL Est Cr Clr Drug Dosing TNP Estimated GFR (MDRD) 32 BUN/Creatinine Ratio 16.8 (No establ ref range) Glucose 176 H (74-99) mg/dL POC Glucose (83-110) mg/dl Calcium 9.0 (8.5-10.1) mg/dL Magnesium (1.8-2.4) mg/dL Total Bilirubin 0.8 (0.2-1.0) mg/dL AST 17 (15-37) U/L ALT 19 (16-63) U/L Alkaline Phosphatase 136 H (46-116) U/L B-Natriuretic Peptide 123 H (0-100) pg/ml Total Protein 8.0 (6.4-8.2) g/dL Albumin 3.8 (3.4-5.0) g/dL Globulin 4.2 Albumin/Globulin Ratio 0.9 04/08/20 04/08/20 04/08/20 Range/Units 16:30 16:58 21:03 WBC (5.0-10.0) 10^3/uL RBC (4.6-6.2) 10^6/uL Hgb (14.0-18.0) g/dL Hct (40.0-54.0) % MCV (80-100) fL MCH (27.0-34.0) pg MCHC (33.0-35.0) g/dL Plt Count (150-450) 10^3/uL Neut % (Auto) (42.2-75.2) % Lymph % (Auto) (20.5-50.1) % [facility] % (Auto) (2-8) % Eos % (Auto) (1.0-3.0) % Baso % (Auto) (0.0-1.0) % Add Manual Diff Neutrophils % (Manual) (42-75) % Band Neutrophils % % Lymphocytes % (Manual) (20-50) % Monocytes % (Manual) (2-8) % Eosinophils % (Manual) (1-3) % Basophils % (Manual) Metamyelocytes % Sodium (136-145) mmol/L Potassium 3.6 (3.5-5.1) mmol/L Chloride (98-107) mmol/L Carbon Dioxide (21-32) mmol/L Anion Gap (7-13) mEq/L BUN (7-18) mg/dL Creatinine (0.70-1.30) mg/dL Est Cr Clr Drug Dosing Estimated GFR (MDRD) BUN/Creatinine Ratio (No establ ref range) Glucose (74-99) mg/dL POC Glucose 151 H 257 H (83-110) mg/dl Calcium (8.5-10.1) mg/dL Magnesium 2.2 (1.8-2.4) mg/dL Total Bilirubin (0.2-1.0) mg/dL AST (15-37) U/L ALT (16-63) U/L Alkaline Phosphatase (46-116) U/L B-Natriuretic Peptide (0-100) pg/ml Total Protein (6.4-8.2) g/dL Albumin (3.4-5.0) g/dL Globulin Albumin/Globulin Ratio 04/09/20 04/09/20 04/09/20 Range/Units 06:00 06:00 07:46 WBC 7.9 (5.0-10.0) 10^3/uL RBC 3.74 L (4.6-6.2) 10^6/uL Hgb 11.4 L D (14.0-18.0) g/dL Hct 35.1 L (40.0-54.0) % MCV 93.9 (80-100) fL MCH 30.5 (27.0-34.0) pg MCHC 32.5 L (33.0-35.0) g/dL Plt Count 172 (150-450) 10^3/uL Neut % (Auto) (42.2-75.2) % Lymph % (Auto) (20.5-50.1) % [facility] % (Auto) (2-8) % Eos % (Auto) (1.0-3.0) % Baso % (Auto) (0.0-1.0) % Add Manual Diff Neutrophils % (Manual) (42-75) % Band Neutrophils % % Lymphocytes % (Manual) (20-50) % Monocytes % (Manual) (2-8) % Eosinophils % (Manual) (1-3) % Basophils % (Manual) Metamyelocytes % Sodium 139 (136-145) mmol/L Potassium 4.4 (3.5-5.1) mmol/L Chloride 102 (98-107) mmol/L Carbon Dioxide 30 (21-32) mmol/L Anion Gap 11.4 (7-13) mEq/L BUN 35 H (7-18) mg/dL Creatinine 1.83 H (0.70-1.30) mg/dL Est Cr Clr Drug Dosing 28.01 Estimated GFR (MDRD) 36 BUN/Creatinine Ratio (No establ ref range) Glucose 180 H (74-99) mg/dL POC Glucose 173 H (83-110) mg/dl Calcium 9.2 (8.5-10.1) mg/dL Magnesium (1.8-2.4) mg/dL Total Bilirubin (0.2-1.0) mg/dL AST (15-37) U/L ALT (16-63) U/L Alkaline Phosphatase (46-116) U/L B-Natriuretic Peptide (0-100) pg/ml Total Protein (6.4-8.2) g/dL Albumin (3.4-5.0) g/dL Globulin Albumin/Globulin Ratio [place] Results Last 24 Hours: Microbiology 04/08/20 16:30 Gram Stain - Final Sputum - Expectorated 04/08/20 11:08 Anaerobic Blood Culture - Final Blood Med Orders - Current: Current Medications Acetaminophen (Tylenol) 650 mg PO Q4H PRN PRN Reason: Pain (Mild 1-3)/fever Albuterol/Ipratropium (Duoneb 3.0-0.5 Mg/3 Ml) 3 ml NEB Q4H [facility] Last Admin: 04/09/20 07:21 Dose: 3 ml Documented by: Amiodarone HCl (Cordarone) 100 mg PO DAILY [facility] Last Admin: 04/09/20 09:23 Dose: Not Given Documented by: Apixaban (Eliquis) 5 mg PO BID [facility] Last Admin: 04/09/20 09:23 Dose: Not Given Documented by: Aspirin (Aspirin) 81 mg PO DAILY [facility] Last Admin: 04/09/20 09:23 Dose: Not Given Documented by: Atorvastatin Calcium (Lipitor) 10 mg PO DAILY [facility] Last Admin: 04/09/20 09:24 Dose: Not Given Documented by: Docusate Sodium (Colace) 100 mg PO BID PRN PRN Reason: Constipation Furosemide (Lasix) 40 mg PO BID [facility] Last Admin: 04/09/20 09:24 Dose: Not Given Documented by: Glimepiride (Amaryl) 1 mg PO BEDTIME [facility] Last Admin: 04/08/20 21:22 Dose: 1 mg Documented by: Azithromycin 500 mg/ Sodium (Chloride) 250 mls @ 250 mls/hr IV Q24H [facility] Last Admin: 04/09/20 09:24 Dose: Not Given Documented by: Insulin Human Lispro (Humalog) 0 unit SUBCUT WITHMEALSANDBED [facility]; Protocol Last Admin: 04/09/20 08:42 Dose: 2 units Documented by: Magnesium Hydroxide (Milk Of Magnesia) 30 ml PO Q12H PRN PRN Reason: Constipation Methylprednisolone Sodium Succinate (Solu-Medrol) 40 mg IVPUSH Q8H [facility] Last Admin: 04/09/20 04:05 Dose: 40 mg Documented by: Metoprolol Succinate (Toprol Xl) 50 mg PO BID [facility] Last Admin: 04/09/20 09:24 Dose: Not Given Documented by: Omeprazole (Omeprazole) 20 mg PO DAILY [facility] Last Admin: 04/09/20 09:24 Dose: Not Given Documented by: Ondansetron HCl (Zofran) 4 mg IVPUSH Q6H PRN PRN Reason: Nausea/Vomiting Oxycodone/Acetaminophen (Percocet 325-5 Mg) 1 tab PO DAILY PRN PRN Reason: Pain Potassium Chloride (Klor-Con 10) 40 meq PO BID [facility] Last Admin: 04/09/20 09:23 Dose: Not Given Documented by: Discontinued Medications Albuterol/Ipratropium (Duoneb 3.0-0.5 Mg/3 Ml) 3 ml NEB ONETIME ONE Stop: 04/08/20 12:44 Last Admin: 04/08/20 12:47 Dose: 3 ml Documented by: Albuterol/Ipratropium (Duoneb 3.0-0.5 Mg/3 Ml) 3 ml NEB Q4HR [facility] Last Admin: 04/09/20 02:53 Dose: Not Given Documented by: Heparin Sodium (Porcine) (Heparin Sodium) 5,000 units SUBCUT Q12HR [facility] Ceftriaxone Sodium 1 gm/ (Sodium Chloride) 50 mls @ 100 mls/hr IV ONETIME ONE Stop: 04/08/20 12:47 Last Admin: 04/08/20 12:34 Dose: 100 mls/hr Documented by: Methylprednisolone Sodium Succinate (Solu-Medrol) 125 mg IVPUSH ONETIME ONE Stop: 04/08/20 12:20 Last Admin: 04/08/20 12:29 Dose: 125 mg Documented by: - Exam General: Alert, Oriented HEENT: Pupils Equal, Pupils Reactive, EOMI, Mucous Membr. Moist/[place] Neck: Supple Lungs: Clear to Auscultation, Normal Respiratory Effort Cardiovascular: Regular Rate, Regular Rhythm GI/Abdominal Exam: Normal Bowel Sounds, Soft, Non-Tender, No Organomegaly, No Distention, No Abnormal Bruit, No Mass, Pelvis Stable (Male) Exam: No Hernia, Normal Inspection, Normal Prostate, Circumcised Back Exam: Normal Inspection, Full Range of Motion Extremities: Normal Inspection, Normal Range of Motion, Non-Tender, No Pedal Edema, Normal Capillary Refill Skin: Warm, Dry, Intact Wound/Incisions: Healing Well Neurological: No New Focal Deficit Psy/Mental Status: Alert, Normal Affect, Normal Mood Sepsis Event Note - Evaluation Sepsis Screening Result: Sepsis Risk - Focused Exam Vital Signs: Vital Signs Temp Pulse Pulse Resp BP Pulse Ox Pulse Ox 04/09/20 07:55 82 126/50 L 04/09/20 07:22 89 93 L 04/09/20 04:00 97.6 F 20 96 04/09/20 00:00 95 - Problem List & Annotations (1) Hypokalemia SNOMED Code(s): 34699224 Code(s): E87.6 - HYPOKALEMIA Status: Acute Current Visit: Yes (2) CHF (congestive heart failure) SNOMED Code(s): 03816101 Code(s): I50.9 - HEART FAILURE, UNSPECIFIED Status: Acute Current Visit: No Qualifiers: Heart failure type: other Qualified Code(s): I50.9 - Heart failure, unspecified (3) COPD exacerbation SNOMED Code(s): 844183107 Code(s): J44.1 - CHRONIC OBSTRUCTIVE PULMONARY DISEASE W (ACUTE) EXACERBATION Status: Acute Current Visit: No - Problem List Review Problem List Initiated/Reviewed/Updated: Yes - My Orders Last 24 Hours: My Active Orders 04/08/20 13:58 Ambulate [RC] ASDIRECTED Height and Weight [RC] 0600 Oxygen Therapy [RC] PRN VTE/DVT Education [RC] PER UNIT ROUTINE Vital Signs [RC] 00,04,08,12,16,20 PT Evaluation and Treatment [CONS] Routine Respiratory Care Assess and Treatment [CONS] Routine Acetaminophen [TylenoL] 650 mg PO Q4H PRN Docusate Sodium [Colace] 100 mg PO BID PRN Magnesium Hydroxide [Milk of Magnesia] 30 ml PO Q12H PRN Ondansetron [Zofran] 4 mg IVPUSH Q6H PRN Resuscitation Status Routine 04/08/20 13:59 Intake and Output [RC] QSHIFT Notify Provider Vital Signs [RC] ASDIRECTED Pulse Oximetry [RC] PRN 04/08/20 14:01 RT Aerosol Therapy [RC] ASDIRECTED 04/08/20 14:06 Acetaminophen/oxyCODONE [Percocet 325-5 MG] 1 tab PO DAILY PRN 04/08/20 14:43 Blood Glucose Check, Bedside [RC] QIDACANDBED 04/08/20 16:30 CULTURE SPUTUM + SMEAR [RM] Stat 04/08/20 Dinner Heart Healthy Diet [DIET] 04/08/20 18:00 Insulin Lispro [HumaLOG] See Protocol SUBCUT WITHMEALSANDBED 04/08/20 20:00 methylPREDNISolone Sod Succ [Solu-MEDROL] 40 mg IVPUSH Q8H 04/08/20 21:00 Apixaban [Eliquis] 5 mg PO BID Furosemide [Lasix] 40 mg PO BID Glimepiride [Amaryl] 1 mg PO BEDTIME Metoprolol Succinate [Toprol XL] 50 mg PO BID Potassium Chloride [Klor-Con 10] 40 meq PO BID 04/09/20 07:00 Albuterol/Ipratropium [DuoNeb 3.0-0.5 MG/3 ML] 3 ml NEB Q4H 04/09/20 09:00 Amiodarone [Cordarone] 100 mg PO DAILY Aspirin 81 mg PO DAILY Azithromycin [Zithromax] 500 mg Sodium Chloride 0.9% [Normal Saline (AdvBag)] 250 ml IV Q24H Omeprazole 20 mg PO DAILY atorvaSTATin [Lipitor] 10 mg PO DAILY - Plan Plan:: #Acute respiratory failure with hypoxia due to COPD exacerbation -DuoNebs every 4 hourly -Solu-Medrol 40 mg every 8 hours -Continue home breathing treatments -Continue supplemental oxygen and wean off as able #Leukocytosis likely reactive -Resolved -Chest x-ray negative for infiltrate -Patient with no fever or chills -For procalcitonin -CBC in the a.m. -Patient on azithromycin #Hypokalemia -Resolved #History of A. fib -Controlled metoprolol. Continue -On Eliquis for anticoagulation. Continue #Hypertension -BP within acceptable limits -Continue home medication -Monitor BP closely #Hyperlipidemia -Continue Home meds #Type 2 diabetes -Continue home medication -Add SSI for optimal glycemic control -Accu-Cheks -Hypoglycemic protocol #CHF -Not in exacerbation -Continue home medication -Daily weights #Physical debility -PT/OT #Full code
[2020-04-09] MEDS: Glimepiride 2 MG Tab PO SCH (21:38)
[2020-04-10] MEDS: Albuterol/Ipratropium 3.0-0.5 MG/3 ML Neb Soln NEB SCH ×3 (03:24→11:04)
[2020-04-10] MEDS: methylPREDNISolone Sodium Succinate 40 MG/1 ML SDV IVPUSH SCH (03:30)
[2020-04-10] MEDS: Sodium Chloride 0.9% 10 ML Syringe FLUSH PRN ×2 (03:30→09:05)
[2020-04-10] MEDS ORDERED: Omeprazole 20 MG Cap.CR PO SCH (06:00)
[2020-04-10] MEDS ORDERED: Furosemide 40 MG Tab PO SCH (08:00)
[2020-04-10 08:08] VITALS: BP 151/80; PULSE 83
[2020-04-10] MEDS: Metoprolol Succinate 50 MG Tab.ER PO SCH (09:00)
[2020-04-10] MEDS: Potassium Chloride 10 MEQ Tab.ER PO SCH (09:00)
[2020-04-10] MEDS: atorvaSTATin 10 MG Tab PO SCH (09:00)
[2020-04-10] MEDS: Apixaban 5 MG Tab PO SCH (09:00)
[2020-04-10] MEDS: Aspirin 81 MG Tab.Chew PO SCH (09:01)
[2020-04-10] MEDS: Amiodarone 200 MG Tab PO SCH (09:01)
[2020-04-10] MEDS: Insulin Lispro 100 Units/ML 3 ML Vial SUBCUT SCH (09:03)
[2020-04-10] MEDS: Azithromycin 500 MG in Sodium Chloride 0.9% 250 ML IV SCH (09:40)
--- NOTE | 2020-04-10 09:51 | PCM.DCSUM1 ---
Discharge Summary - Hospital Course Free Text/Narrative:: Zach is 80-year-old male with past medical history significant for COPD, A. fib on chronic anticoagulation, hyperlipidemia, diabetes who presented to the ED for evaluation of increasing shortness of breath x 3 days. He was admitted for COPD exacerbation. Chest x-ray was negative for acute changes. Findings consistent with COPD. He was managed with duo nebs, Solu-Medrol. His symptoms improved. He was discharged in stable condition with plan to follow-up with PCP. Patient was strongly advised on the importance of quitting tobacco use. He verbalized understanding. Diagnosis: Stroke: No - Discharge Data Discharge Date: 04/10/20 Discharge Disposition: Home, Self-Care 01 Condition: Stable - Referral to Home Health Primary Care Physician: PCP None - Discharge Diagnosis/Problem(s) (1) Hypokalemia SNOMED Code(s): 62518009 ICD Code: E87.6 - HYPOKALEMIA Status: Acute Current Visit: Yes (2) CHF (congestive heart failure) SNOMED Code(s): 94950615 ICD Code: I50.9 - HEART FAILURE, UNSPECIFIED Status: Acute Current Visit: No Qualifiers: Heart failure type: other Qualified Code(s): I50.9 - Heart failure, unspecified (3) COPD exacerbation SNOMED Code(s): 481673778 ICD Code: J44.1 - CHRONIC OBSTRUCTIVE PULMONARY DISEASE W (ACUTE) EXACERBATION Status: Acute Current Visit: No - Patient Summary/Data Consults: Consultations 04/08/20 13:58 PT Evaluation and Treatment [CONS] Routine Respiratory Care Assess and Treatment [CONS] Routine - Patient Instructions Driving: May Drive Today Showering/Bathing: May Shower Notify Provider of: Fever, Increased Pain, Swelling and Redness, Nausea and/or Vomiting - Discharge Plan *PRESCRIPTION DRUG MONITORING PROGRAM REVIEWED*: No *COPY OF PRESCRIPTION DRUG MONITORING REPORT IN PATIENT LACY: No Prescriptions/Med Rec: Azithromycin 250 mg PO DAILY #4 tablet predniSONE [Prednisone] 40 mg PO DAILY #10 tablet Home Medications: Home Meds Apixaban [Eliquis] 5 mg PO BID 10/14/14 [History] Furosemide 40 mg PO BID 10/14/14 [History] Metoprolol Succinate 50 mg PO BID 08/16/15 [History] Aspirin [Nitta [place] Aspirin] 81 mg PO DAILY 11/28/16 [History] Acetaminophen/oxyCODONE [Percocet 325-5 MG] 1 tab PO DAILY PRN 03/25/18 [History] Omeprazole 20 mg PO DAILY 05/31/18 [History] Amiodarone [Cordarone] 200 mg PO DAILY 04/08/20 [History] Glimepiride 1 mg PO BEDTIME 04/08/20 [History] atorvaSTATin [Lipitor] 10 mg PO DAILY 04/08/20 [History] Azithromycin 250 mg PO DAILY #4 tablet 04/10/20 [Rx] predniSONE [Prednisone] 40 mg PO DAILY #10 tablet 04/10/20 [Rx] Oxygen Therapy Mode: Room Air Forms: ED Department Discharge Referrals: Aly Guillen MD [Physician] - - Discharge Summary/Plan Comment DC Time >30 min.: Yes - General Info Admission Dx/Problem (Free Text: Admission Diagnosis/Problem Admission Diagnosis/Problem COPD, Moderate chronic obstructive pulmonary disease Functional Status: Reports: Pain Controlled - Review of Systems General: Reports: No Symptoms HEENT: Reports: No Symptoms Pulmonary: Reports: No Symptoms Cardiovascular: Reports: No Symptoms Gastrointestinal: Reports: No Symptoms Genitourinary: Reports: No Symptoms Musculoskeletal: Reports: No Symptoms Skin: Reports: No Symptoms Neurological: Reports: No Symptoms Psychiatric: Reports: No Symptoms - Patient Data Vitals - Most Recent: Last Vital Signs Temp 98.2 F 04/10/20 08:00 Pulse 83 04/10/20 09:00 Resp 20 04/10/20 08:00 BP 151/80 H 04/10/20 09:00 Pulse Ox 92 L 04/10/20 08:00 Weight - Most Recent: 226 lb 8 oz I&O - Last 24 hours: Intake & Output 04/09/20 04/10/20 04/10/20 22:59 06:59 14:59 Intake Total 1360 200 Output Total 200 600 Balance 1160 -400 Lab Results - Last 24 hrs: Laboratory Results - last 24 hr 04/09/20 04/09/20 04/09/20 Range/Units 12:07 16:46 20:53 POC Glucose 126 H 192 H 229 H (83-110) mg/dl 04/10/20 Range/Units 08:00 POC Glucose 157 H (83-110) mg/dl MARTHA Results - Last 24 hrs: Microbiology 04/08/20 16:30 Gram Stain - Final Sputum - Expectorated Sputum Culture - Preliminary Normal Maryan 04/08/20 11:08 Aerobic Blood Culture - Preliminary Blood NO GROWTH AFTER 1 DAY Anaerobic Blood Culture - Final Med Orders - Current: Current Medications Acetaminophen (Tylenol) 650 mg PO Q4H PRN PRN Reason: Pain (Mild 1-3)/fever Albuterol/Ipratropium (Duoneb 3.0-0.5 Mg/3 Ml) 3 ml NEB Q4H [facility] Last Admin: 04/10/20 07:28 Dose: 3 ml Documented by: Amiodarone HCl (Cordarone) 100 mg PO DAILY [facility] Last Admin: 04/10/20 09:01 Dose: 100 mg Documented by: Apixaban (Eliquis) 5 mg PO BID [facility] Last Admin: 04/10/20 09:00 Dose: 5 mg Documented by: Aspirin (Aspirin) 81 mg PO DAILY [facility] Last Admin: 04/10/20 09:01 Dose: 81 mg Documented by: Atorvastatin Calcium (Lipitor) 10 mg PO DAILY [facility] Last Admin: 04/10/20 09:00 Dose: 10 mg Documented by: Docusate Sodium (Colace) 100 mg PO BID PRN PRN Reason: Constipation Furosemide (Lasix) 40 mg PO 0800,1400 [facility] Last Admin: 04/10/20 09:01 Dose: 40 mg Documented by: Glimepiride (Amaryl) 1 mg PO BEDTIME [facility] Last Admin: 04/09/20 21:38 Dose: 1 mg Documented by: Azithromycin 500 mg/ Sodium (Chloride) 250 mls @ 250 mls/hr IV Q24H [facility] Last Admin: 04/10/20 09:40 Dose: 250 mls/hr Documented by: Insulin Human Lispro (Humalog) 0 unit SUBCUT WITHMEALSANDBED [facility]; Protocol Last Admin: 04/10/20 09:03 Dose: 2 units Documented by: Magnesium Hydroxide (Milk Of Magnesia) 30 ml PO Q12H PRN PRN Reason: Constipation Methylprednisolone Sodium Succinate (Solu-Medrol) 40 mg IVPUSH Q8H [facility] Last Admin: 04/10/20 03:30 Dose: 40 mg Documented by: Metoprolol Succinate (Toprol Xl) 50 mg PO BID [facility] Last Admin: 04/10/20 09:00 Dose: 50 mg Documented by: Omeprazole (Omeprazole) 20 mg PO ACBREAKFAST [facility] Last Admin: 04/10/20 05:13 Dose: 20 mg Documented by: Ondansetron HCl (Zofran) 4 mg IVPUSH Q6H PRN PRN Reason: Nausea/Vomiting Oxycodone/Acetaminophen (Percocet 325-5 Mg) 1 tab PO DAILY PRN PRN Reason: Pain Potassium Chloride (Klor-Con 10) 40 meq PO BID [facility] Last Admin: 04/10/20 09:00 Dose: 40 meq Documented by: Sodium Chloride (Saline Flush) 10 ml FLUSH ASDIRECTED PRN PRN Reason: IV Use Last Admin: 04/10/20 09:05 Dose: 10 ml Documented by: Discontinued Medications Albuterol/Ipratropium (Duoneb 3.0-0.5 Mg/3 Ml) 3 ml NEB ONETIME ONE Stop: 04/08/20 12:44 Last Admin: 04/08/20 12:47 Dose: 3 ml Documented by: Albuterol/Ipratropium (Duoneb 3.0-0.5 Mg/3 Ml) 3 ml NEB Q4HR [facility] Last Admin: 04/09/20 02:53 Dose: Not Given Documented by: Furosemide (Lasix) 40 mg PO BID [facility] Last Admin: 04/09/20 20:19 Dose: 40 mg Documented by: Heparin Sodium (Porcine) (Heparin Sodium) 5,000 units SUBCUT Q12HR [facility] Ceftriaxone Sodium 1 gm/ (Sodium Chloride) 50 mls @ 100 mls/hr IV ONETIME ONE Stop: 04/08/20 12:47 Last Admin: 04/08/20 12:34 Dose: 100 mls/hr Documented by: Methylprednisolone Sodium Succinate (Solu-Medrol) 125 mg IVPUSH ONETIME ONE Stop: 04/08/20 12:20 Last Admin: 04/08/20 12:29 Dose: 125 mg Documented by: Omeprazole (Omeprazole) 20 mg PO DAILY [facility] Last Admin: 04/09/20 09:24 Dose: Not Given Documented by: - Exam General: Reports: Alert, Oriented HEENT: Reports: Pupils Equal, Pupils Reactive, EOMI, Mucous Membr. Moist/[place] Neck: Reports: Supple Lungs: Reports: Clear to Auscultation, Normal Respiratory Effort Cardiovascular: Reports: Regular Rate, Regular Rhythm GI/Abdominal Exam: Normal Bowel Sounds, Soft, Non-Tender, No Organomegaly, No Distention, No Abnormal Bruit, No Mass, Pelvis Stable (Male) Exam: No Hernia, Normal Inspection, Normal Prostate, Circumcised Rectal (Males) Exam: Normal Exam, Normal Rectal Tone, Prostate Normal Back Exam: Reports: Normal Inspection, Full Range of Motion Extremities: Normal Inspection, Normal Range of Motion, Non-Tender, No Pedal Edema, Normal Capillary Refill Skin: Reports: Warm, Dry, Intact Wound/Incisions: Reports: Healing Well Neurological: Reports: No New Focal Deficit Psy/Mental Status: Reports: Alert, Normal Affect, Normal Mood
== END 2020-04-10 11:00 | disposition home or self-care (01) ==
LOC: DL.ED 10:39 → DL.MS 12:41 → DL.ED 13:05
PROVIDERS: ADMIT Student in an Organized Health Care Education/Training Program; ATTEND Student in an Organized Health Care Education/Training Program
DX: J44.1 Chronic obstructive pulmonary disease with (acute) exacerbation (principal); J96.01 Acute respiratory failure with hypoxia; E78.00 Pure hypercholesterolemia, unspecified; E11.22 Type 2 diabetes mellitus with diabetic chronic kidney disease; N18.9 Chronic kidney disease, unspecified; I13.0 Hypertensive heart and chronic kidney disease with heart failure and stage 1 through stage 4 chronic kidney disease, or unspecified chronic kidney disease; I50.9 Heart failure, unspecified; E78.5 Hyperlipidemia, unspecified; E87.6 Hypokalemia; I48.91 Unspecified atrial fibrillation; F17.210 Nicotine dependence, cigarettes, uncomplicated; D72.829 Elevated white blood cell count, unspecified; R54 Age-related physical debility; Z79.899 Other long term (current) drug therapy; Z79.01 Long term (current) use of anticoagulants; Z79.84 Long term (current) use of oral hypoglycemic drugs; Z79.82 Long term (current) use of aspirin
CPT/HCPCS: 36415; 71046; 80048; 80053; 82962; 83735; 83880; 84132; 85025; 85027; 87040; 87070; 87205; 93005; 94640; 94760; 96365; 96366; 96367; 96375; 96376; 97161-GP; 99284; 99285-25; A9270-GY; G0378; J0456; J0696; J1815-GY; J2920; J2930; J7050; J7620-GY

== ENCOUNTER 2021-11-26 20:52 | Emergency (ER) | payer MEDICARE, MEDICAID ==
[2021-11-26 21:15] VITALS: BP 109/50; PULSE 73
[2021-11-26 21:52] LABS: ANION GAP 16.1 mEq/L (7-13)
[2021-11-26] MEDS ORDERED: predniSONE 20 MG Tab PO ONE (22:12)
== END 2021-11-26 22:23 | disposition home or self-care (01) ==
LOC: DL.ED 20:52
DX: M10.9 Gout, unspecified (principal); J44.9 Chronic obstructive pulmonary disease, unspecified; K21.9 Gastro-esophageal reflux disease without esophagitis; E11.22 Type 2 diabetes mellitus with diabetic chronic kidney disease; E78.00 Pure hypercholesterolemia, unspecified; I12.9 Hypertensive chronic kidney disease with stage 1 through stage 4 chronic kidney disease, or unspecified chronic kidney disease; N18.9 Chronic kidney disease, unspecified; Z79.82 Long term (current) use of aspirin; Z79.01 Long term (current) use of anticoagulants; Z79.899 Other long term (current) drug therapy
CPT/HCPCS: 36415; 80053; 84550; 85025; 99283; 99284; J7512

== ENCOUNTER 2022-08-30 12:47 | Inpatient (IN) | payer MEDICARE, MEDICAID ==
[2022-08-30] MEDS ORDERED: Sodium Chloride 0.9% 1,000 ML IV SCH (13:15)
[2022-08-30] MEDS ORDERED: Acetaminophen 325 MG Tab PO ONE (13:53)
[2022-08-30 13:58] LABS: CORONAVIRUS COVID-19 NAA NEGATIVE (NEGATIVE)
[2022-08-30] MEDS: Sodium Chloride 0.9% 10 ML Syringe FLUSH PRN ×2 (14:05→20:19)
[2022-08-30] MEDS ORDERED: Acetaminophen 500 MG Tab PO ONE (14:08)
[2022-08-30] MEDS ORDERED: Potassium Chloride 10 MEQ Tab.ER PO ONE (14:45)
[2022-08-30] MEDS ORDERED: cefTRIAXone 1 GM Vial IVPUSH ONE (16:06)
[2022-08-30] MEDS ORDERED: Acetaminophen/HYDROcodone 325-5 MG Tab PO PRN (18:57)
[2022-08-30] MEDS ORDERED: HYDROmorphone 0.5 MG/0.5 ML Syringe IVPUSH PRN (18:57)
[2022-08-30] MEDS ORDERED: Magnesium Hydroxide 400 MG/5 ML Susp 30 ML Cup PO PRN (18:57)
[2022-08-30] MEDS ORDERED: Polyethylene Glycol 3350 Powder 17 GM Packet PO PRN (18:57)
[2022-08-30] MEDS ORDERED: Acetaminophen 325 MG Tab PO PRN (18:57)
[2022-08-30] MEDS ORDERED: Albuterol/Ipratropium 3.0-0.5 MG/3 ML Neb Soln NEB PRN (18:57)
[2022-08-30] MEDS ORDERED: Ondansetron 4 MG/2 ML SDV IVPUSH PRN (18:57)
[2022-08-30] MEDS ORDERED: Bisacodyl 5 MG Tab PO PRN (18:57)
[2022-08-30] MEDS ORDERED: Azithromycin 500 MG in Sodium Chloride 0.9% 250 ML IV ONE (19:00)
[2022-08-30] MEDS ORDERED: guaiFENesin/Dextromethorphan 100-10 MG/5 ML Soln 5 ML Cup PO PRN (20:01)
[2022-08-30] MEDS ORDERED: Acetaminophen/oxyCODONE 325-5 MG Tab PO PRN (20:01)
[2022-08-30] MEDS ORDERED: Metoprolol Tartrate 5 MG/5 ML SDV IVPUSH PRN (20:05)
[2022-08-30] MEDS ORDERED: hydrALAZINE 20 MG/ML SDV IVPUSH PRN (20:05)
[2022-08-30] MEDS ORDERED: Lactated Ringers 1,000 ML IV SCH (20:15)
[2022-08-30] MEDS ORDERED: Furosemide 40 MG Tab PO SCH (21:00)
[2022-08-30] MEDS: Midodrine 2.5 MG Tab PO PRN (22:02)
[2022-08-30] MEDS: Apixaban 5 MG Tab PO SCH (22:03)
[2022-08-30] MEDS: Potassium Chloride 10 MEQ Tab.ER PO SCH (22:03)
[2022-08-30] MEDS: Saccharomyces Boulardii (Probiotic) 250 MG Cap PO SCH (22:04)
[2022-08-30] MEDS: Metoprolol Succinate 50 MG Tab.ER PO SCH (22:04)
[2022-08-30] MEDS: Allopurinol 100 MG Tab PO SCH (22:08)
[2022-08-30] MEDS: Piperacillin/Tazobactam 3.375 GM in Sodium Chloride 0.9% 100 ML IV SCH (22:15)
[2022-08-30] MEDS ORDERED: Glucagon,Human Recombinant 1 MG Vial IM PRN (22:42)
[2022-08-30] MEDS ORDERED: 50% Dextrose in Water 50 ML Syringe IVPUSH PRN (22:42)
[2022-08-31] MEDS: Piperacillin/Tazobactam 3.375 GM in Sodium Chloride 0.9% 100 ML IV SCH ×4 (03:05→20:29)
[2022-08-31 07:30] LABS: ANION GAP 10.8 mEq/L (7-13)
[2022-08-31] MEDS: Apixaban 5 MG Tab PO SCH ×2 (08:28→21:11)
[2022-08-31] MEDS: Furosemide 40 MG Tab PO SCH (08:28)
[2022-08-31] MEDS: Glimepiride 2 MG Tab PO SCH (08:29)
[2022-08-31] MEDS: Aspirin 81 MG Tab.Chew PO SCH (08:29)
[2022-08-31] MEDS: Amiodarone 200 MG Tab PO SCH (08:29)
[2022-08-31] MEDS: atorvaSTATin 10 MG Tab PO SCH (08:30)
[2022-08-31] MEDS: Levothyroxine 25 MCG Tab PO SCH (08:30)
[2022-08-31] MEDS: Metoprolol Succinate 50 MG Tab.ER PO SCH (08:30)
[2022-08-31] MEDS: Saccharomyces Boulardii (Probiotic) 250 MG Cap PO SCH ×2 (08:30→21:12)
[2022-08-31] MEDS: Insulin Lispro 100 Units/ML 3 ML Vial SUBCUT SCH ×3 (08:31→17:00)
[2022-08-31] MEDS: Sodium Chloride 0.9% 10 ML Syringe FLUSH PRN ×2 (08:34→14:24)
[2022-08-31 09:45] LABS: HEMOGLOBIN A1C 5.6 % (<5.7)
[2022-08-31] MEDS ORDERED: Furosemide 40 MG Tab PO PRN (12:00)
[2022-08-31] MEDS: Midodrine 2.5 MG Tab PO PRN ×2 (12:32→21:11)
[2022-08-31] MEDS: Azithromycin 500 MG in Sodium Chloride 0.9% 250 ML IV SCH (21:10)
[2022-08-31] MEDS: Potassium Chloride 10 MEQ Tab.ER PO SCH (21:11)
[2022-08-31] MEDS: Allopurinol 100 MG Tab PO SCH (21:13)
[2022-09-01] MEDS: Metoprolol Succinate 50 MG Tab.ER PO SCH ×3 (01:20→20:23)
[2022-09-01] MEDS: Furosemide 40 MG Tab PO SCH ×3 (01:20→20:15)
[2022-09-01] MEDS: Piperacillin/Tazobactam 3.375 GM in Sodium Chloride 0.9% 100 ML IV SCH ×4 (01:35→20:06)
[2022-09-01 06:35] LABS: ANION GAP 10.7 mEq/L (7-13)
[2022-09-01] MEDS: Aspirin 81 MG Tab.Chew PO SCH (08:32)
[2022-09-01] MEDS: Saccharomyces Boulardii (Probiotic) 250 MG Cap PO SCH ×2 (08:32→20:22)
[2022-09-01] MEDS: Apixaban 5 MG Tab PO SCH ×2 (08:33→20:22)
[2022-09-01] MEDS: Amiodarone 200 MG Tab PO SCH (08:33)
[2022-09-01] MEDS: Levothyroxine 25 MCG Tab PO SCH (08:34)
[2022-09-01] MEDS: atorvaSTATin 10 MG Tab PO SCH (08:34)
[2022-09-01] MEDS: Sodium Chloride 0.9% 10 ML Syringe FLUSH PRN ×3 (08:37→20:58)
[2022-09-01] MEDS: Insulin Lispro 100 Units/ML 3 ML Vial SUBCUT SCH ×3 (08:48→16:56)
[2022-09-01] MEDS: Potassium Chloride 10 MEQ Tab.ER PO SCH (20:21)
[2022-09-01] MEDS: Allopurinol 100 MG Tab PO SCH (20:25)
[2022-09-01] MEDS: Azithromycin 500 MG in Sodium Chloride 0.9% 250 ML IV SCH (20:58)
[2022-09-02] MEDS: Sodium Chloride 0.9% 10 ML Syringe FLUSH PRN ×2 (01:43→20:05)
[2022-09-02] MEDS: Piperacillin/Tazobactam 3.375 GM in Sodium Chloride 0.9% 100 ML IV SCH ×4 (01:44→20:06)
[2022-09-02 06:43] LABS: ANION GAP 12.2 mEq/L (7-13)
[2022-09-02] MEDS ORDERED: Ergocalciferol (Vitamin D2) 1.25 MG Cap PO SCH (08:30)
[2022-09-02] MEDS: Apixaban 5 MG Tab PO SCH ×2 (08:41→20:54)
[2022-09-02] MEDS: Saccharomyces Boulardii (Probiotic) 250 MG Cap PO SCH ×2 (08:41→20:55)
[2022-09-02] MEDS: Aspirin 81 MG Tab.Chew PO SCH (08:41)
[2022-09-02] MEDS: Levothyroxine 25 MCG Tab PO SCH (08:42)
[2022-09-02] MEDS: Amiodarone 200 MG Tab PO SCH (08:42)
[2022-09-02] MEDS: Furosemide 40 MG Tab PO SCH ×2 (08:43→14:49)
[2022-09-02] MEDS: Metoprolol Succinate 50 MG Tab.ER PO SCH ×2 (08:43→20:55)
[2022-09-02] MEDS: atorvaSTATin 10 MG Tab PO SCH (08:43)
[2022-09-02] MEDS: Insulin Lispro 100 Units/ML 3 ML Vial SUBCUT SCH ×3 (08:44→17:13)
[2022-09-02] MEDS: Allopurinol 100 MG Tab PO SCH (20:54)
[2022-09-02] MEDS: Potassium Chloride 10 MEQ Tab.ER PO SCH (20:54)
[2022-09-02] MEDS: Azithromycin 500 MG in Sodium Chloride 0.9% 250 ML IV SCH (21:02)
[2022-09-03] MEDS: Piperacillin/Tazobactam 3.375 GM in Sodium Chloride 0.9% 100 ML IV SCH ×4 (01:48→20:05)
[2022-09-03] MEDS: Sodium Chloride 0.9% 10 ML Syringe FLUSH PRN ×5 (01:49→20:48)
[2022-09-03] MEDS: Midodrine 2.5 MG Tab PO PRN ×2 (04:25→20:21)
[2022-09-03 06:33] LABS: ANION GAP 11.8 mEq/L (7-13)
[2022-09-03] MEDS: Apixaban 5 MG Tab PO SCH ×2 (08:37→20:20)
[2022-09-03] MEDS: Metoprolol Succinate 50 MG Tab.ER PO SCH ×2 (08:37→20:23)
[2022-09-03] MEDS: Aspirin 81 MG Tab.Chew PO SCH (08:37)
[2022-09-03] MEDS: atorvaSTATin 10 MG Tab PO SCH (08:37)
[2022-09-03] MEDS: Saccharomyces Boulardii (Probiotic) 250 MG Cap PO SCH ×2 (08:38→20:19)
[2022-09-03] MEDS: Amiodarone 200 MG Tab PO SCH (08:38)
[2022-09-03] MEDS: Levothyroxine 25 MCG Tab PO SCH (08:38)
[2022-09-03] MEDS: Furosemide 40 MG Tab PO SCH ×2 (08:38→14:28)
[2022-09-03] MEDS: Insulin Lispro 100 Units/ML 3 ML Vial SUBCUT SCH ×3 (08:40→18:05)
[2022-09-03] MEDS: Glimepiride 2 MG Tab PO SCH (12:38)
[2022-09-03] MEDS: Allopurinol 100 MG Tab PO SCH (20:20)
[2022-09-03] MEDS: Potassium Chloride 10 MEQ Tab.ER PO SCH (20:20)
[2022-09-03] MEDS: Azithromycin 500 MG in Sodium Chloride 0.9% 250 ML IV SCH (20:48)
[2022-09-04] MEDS: Piperacillin/Tazobactam 3.375 GM in Sodium Chloride 0.9% 100 ML IV SCH ×3 (01:42→13:33)
[2022-09-04] MEDS: Midodrine 2.5 MG Tab PO PRN (05:35)
[2022-09-04] MEDS: Insulin Lispro 100 Units/ML 3 ML Vial SUBCUT SCH ×2 (07:35→12:03)
[2022-09-04] MEDS: Apixaban 5 MG Tab PO SCH (08:14)
[2022-09-04] MEDS: Amiodarone 200 MG Tab PO SCH (08:14)
[2022-09-04] MEDS: atorvaSTATin 10 MG Tab PO SCH (08:14)
[2022-09-04] MEDS: Aspirin 81 MG Tab.Chew PO SCH (08:15)
[2022-09-04] MEDS: Levothyroxine 25 MCG Tab PO SCH (08:15)
[2022-09-04] MEDS: Saccharomyces Boulardii (Probiotic) 250 MG Cap PO SCH (08:15)
[2022-09-04] MEDS: Furosemide 40 MG Tab PO SCH ×2 (08:18→13:34)
[2022-09-04] MEDS: Metoprolol Succinate 50 MG Tab.ER PO SCH (08:19)
[2022-09-04] MEDS: Sodium Chloride 0.9% 10 ML Syringe FLUSH PRN (08:22)
[2022-09-04 12:51] VITALS: BP 125/70; PULSE 81
== END 2022-09-04 13:50 | disposition home or self-care (01) | DRG 872 ==
LOC: DL.ED 12:47 → DL.MS 16:35 → INTOOBSV 16:35 → UNDOADMOB 16:35 → DL.MS 16:51 → OBSVTOIN 16:51
PROVIDERS: ADMIT Internal Medicine; ATTEND Internal Medicine
DX: A40.3 Sepsis due to Streptococcus pneumoniae (principal); I42.9 Cardiomyopathy, unspecified; I48.20 Chronic atrial fibrillation, unspecified; E87.1 Hypo-osmolality and hyponatremia; J44.0 Chronic obstructive pulmonary disease with (acute) lower respiratory infection; E55.9 Vitamin D deficiency, unspecified; R65.10 Systemic inflammatory response syndrome (SIRS) of non-infectious origin without acute organ dysfunction; J40 Bronchitis, not specified as acute or chronic; I95.9 Hypotension, unspecified; E11.65 Type 2 diabetes mellitus with hyperglycemia; E11.649 Type 2 diabetes mellitus with hypoglycemia without coma; R74.8 Abnormal levels of other serum enzymes; E87.6 Hypokalemia; E88.09 Other disorders of plasma-protein metabolism, not elsewhere classified; Z20.822 Contact with and (suspected) exposure to COVID-19; I48.91 Unspecified atrial fibrillation; I12.9 Hypertensive chronic kidney disease with stage 1 through stage 4 chronic kidney disease, or unspecified chronic kidney disease; E11.22 Type 2 diabetes mellitus with diabetic chronic kidney disease; I77.1 Stricture of artery; N18.30 Chronic kidney disease, stage 3 unspecified; M19.90 Unspecified osteoarthritis, unspecified site; G89.29 Other chronic pain; M54.50 Low back pain, unspecified; F17.210 Nicotine dependence, cigarettes, uncomplicated; J44.9 Chronic obstructive pulmonary disease, unspecified; Z79.890 Hormone replacement therapy; E78.5 Hyperlipidemia, unspecified; Z79.84 Long term (current) use of oral hypoglycemic drugs; K21.9 Gastro-esophageal reflux disease without esophagitis; Z95.810 Presence of automatic (implantable) cardiac defibrillator; Z79.01 Long term (current) use of anticoagulants; Z79.82 Long term (current) use of aspirin; Z79.899 Other long term (current) drug therapy
CPT/HCPCS: 0240U; 36415; 71045; 71046; 80048; 80053; 81001; 82306; 82533; 82947; 83036; 83605; 83735; 83880; 84145; 84439; 84443; 84484; 85025; 85610; 85651; 86140; 87040; 87070; 87077; 87186; 87205; 93005; 93010; 94010; 96361; 96374; 99232; 99233; 99238; 99285; A9270-GY; J0456; J0696; J2543; J3490; J7030; J7050; J7120

== ENCOUNTER 2023-11-22 08:02 | Emergency (ER) | payer OTHER, MEDICAID ==
[2023-11-22 08:51] LABS: ALBUMIN 3.6 g/dL (3.4-5.0); ANION GAP 12.4 mEq/L (7-13); BILIRUBIN TOTAL 0.4 mg/dL (0.2-1.0); BUN/CREATININE RATIO 20.1 (No establ ref range); CALCIUM 8.3 mg/dL (8.5-10.1); CREATININE 1.74 mg/dL (0.70-1.30); EST CRCL DRUG DOSING (CG) 31.12 mL/min; MAGNESIUM 2.5 mg/dL (1.8-2.4); POTASSIUM,K 3.4 mmol/L (3.5-5.1); PROTEIN TOTAL,TP 7.3 g/dL (6.4-8.2)
[2023-11-22] MEDS ORDERED: Lidocaine 1% 5 ML VIAL INJECT ONE (09:04)
[2023-11-22 09:23] LABS: HEMATOCRIT 34.6 % (40.0-54.0); HEMOGLOBIN 11.5 g/dL (14.0-18.0); MEAN CORPUSCULAR HEMOGLOBIN 33.3 pg (27.0-34.0); MEAN CORPUSCULAR HGB CONC 33.2 g/dL (33.0-35.0); MEAN CORPUSCULAR VOLUME 100.3 fL (80-100); PLATELET COUNT,PLT 129 10^3/uL (150-450); RED BLOOD CELL COUNT 3.45 10^6/uL (4.6-6.2); WHITE BLOOD CELL COUNT,WBC 6.5 10^3/uL (5.0-10.0)
[2023-11-22] MEDS ORDERED: Bacitracin Oint 1 GM U/D Packet TOP ONE (09:34)
[2023-11-22 09:36] LABS: LYMPHOCYTES PERCENT AUTO 22.3 % (20.5-50.1); NEUTROPHILS PERCENT AUTO 61.4 % (42.2-75.2)
[2023-11-22 09:37] LABS: BASOPHILS PERCENT AUTO 0.9 % (0.0-1.0); EOSINOPHILS PERCENT AUTO 1.2 % (1.0-3.0); MONOCYTES PERCENT AUTO 14.2 % (2-8)
[2023-11-22] MEDS ORDERED: Diphtheria,Pertussis(Acell),Tetanus Vaccine 0.5 ML Syringe IM ONE (09:38)
[2023-11-22 09:44] LABS: INR 0.9 (0.9-1.2); PROTHROMBIN TIME 9.8 SEC (9.0-12.0); PTT,PARTIAL THROMBOPLSTIN TIME 26.1 SEC (22.0-34.0)
[2023-11-22 09:54] LABS: LACTIC ACID 4.7 mmol/L (0.4-2.0)
[2023-11-22] MEDS ORDERED: Sodium Chloride 0.9% 1,000 ML IV ONE (09:57)
[2023-11-22 10:11] LABS: BAND PERCENT MAN 2 %; EOSINOPHILS PERCENT MAN 3 % (1-3); LYMPHOCYTES PERCENT MAN 21 % (20-50); MONOCYTES PERCENT MAN 12 % (2-8); SEG NEUTROPHILS PERCENT MAN 62 % (42-75)
[2023-11-22 10:57] LABS: APPEARANCE,URINE CLEAR (CLEAR); BILIRUBIN,URINE NEGATIVE (NEGATIVE); COLOR,URINE YELLOW (YELLOW); GLUCOSE,URINE NEGATIVE (NEGATIVE); KETONES,URINE NEGATIVE (NEGATIVE); LEUKOCYTE ESTERASE,URINE NEGATIVE (NEGATIVE); NITRITE,URINE NEGATIVE (NEGATIVE); OCCULT BLOOD,URINE NEGATIVE (NEGATIVE); PROTEIN,URINE NEGATIVE (NEGATIVE); UROBILINOGEN,URINE 0.2 mg/dL (0.2-1.0)
[2023-11-22 11:13] LABS: AMPHETAMINES,URINE NEGATIVE (NEGATIVE); BARBITURATES,URINE NEGATIVE (NEGATIVE); BENZODIAZEPINE,URINE NEGATIVE (NEGATIVE); MDMA (ECSTASY), URINE NEGATIVE (NEGATIVE); METHADONE,URINE NEGATIVE (NEGATIVE); METHAMPHETAMINES,URINE NEGATIVE (NEGATIVE); OPIATES,URINE NEGATIVE (NEGATIVE); OXYCODONE,URINE NEGATIVE (NEGATIVE); PHENCYCLIDINE,URINE NEGATIVE (NEGATIVE); TCA,URINE NEGATIVE (NEGATIVE)
== END 2023-11-22 11:19 | disposition home or self-care (01) ==
LOC: DL.ED 08:02
DX: S01.81XA Laceration without foreign body of other part of head, initial encounter (principal); F10.129 Alcohol abuse with intoxication, unspecified; K11.8 Other diseases of salivary glands; I12.9 Hypertensive chronic kidney disease with stage 1 through stage 4 chronic kidney disease, or unspecified chronic kidney disease; N18.9 Chronic kidney disease, unspecified; E78.00 Pure hypercholesterolemia, unspecified; J44.9 Chronic obstructive pulmonary disease, unspecified; K21.9 Gastro-esophageal reflux disease without esophagitis; E11.22 Type 2 diabetes mellitus with diabetic chronic kidney disease; Z79.82 Long term (current) use of aspirin; Z79.899 Other long term (current) drug therapy; Z79.01 Long term (current) use of anticoagulants; Y90.9 Presence of alcohol in blood, level not specified; Z23 Encounter for immunization; Z79.84 Long term (current) use of oral hypoglycemic drugs; W19.XXXA Unspecified fall, initial encounter
CPT/HCPCS: 12013; 36415; 70450; 71045; 72125; 80053; 80305-QW; 80307; 81003; 83605; 83735; 83880; 84484; 85025; 85610; 85730; 90471; 93010; 96360; 99284; 99285-25

== ENCOUNTER 2024-05-07 18:01 | Inpatient (IN) | payer MEDICARE, MEDICAID ==
[2024-05-07 18:22] LABS: HEMATOCRIT 25.5 % (40.0-54.0); HEMOGLOBIN 8.2 g/dL (14.0-18.0); MEAN CORPUSCULAR HEMOGLOBIN 33.2 pg (27.0-34.0); MEAN CORPUSCULAR HGB CONC 32.2 g/dL (33.0-35.0); MEAN CORPUSCULAR VOLUME 103.2 fL (80-100); PLATELET COUNT,PLT 135 10^3/uL (150-450); RED BLOOD CELL COUNT 2.47 10^6/uL (4.6-6.2); WHITE BLOOD CELL COUNT,WBC 7.8 10^3/uL (5.0-10.0)
[2024-05-07 18:26] LABS: BASOPHILS PERCENT AUTO 0.5 % (0.0-1.0); EOSINOPHILS PERCENT AUTO 0.3 % (1.0-3.0); LYMPHOCYTES PERCENT AUTO 9.5 % (20.5-50.1); MONOCYTES PERCENT AUTO 10.4 % (2-8); NEUTROPHILS PERCENT AUTO 79.3 % (42.2-75.2)
[2024-05-07] MEDS: Sodium Chloride 0.9% 1,000 ML IV ONE ×2 (18:28→19:52)
[2024-05-07 18:46] LABS: ALANINE AMINOTRANSFERASE,ALT 29 U/L (16-63); ALBUMIN 3.2 g/dL (3.4-5.0); ALKALINE PHOSPHATASE 101 U/L (46-116); ANION GAP 16.2 mEq/L (7-13); ASPARTATE AMNIOTRANSFERASE,AST 24 U/L (15-37); BILIRUBIN TOTAL 0.3 mg/dL (0.2-1.0); BLOOD UREA NITROGEN,BUN 64 mg/dL (7-18); CALCIUM 7.9 mg/dL (8.5-10.1); CARBON DIOXIDE,CO2 24 mmol/L (21-32); CHLORIDE,CL 101 mmol/L (98-107); CREATININE 3.76 mg/dL (0.70-1.30); GLUCOSE RANDOM 113 mg/dL (70-99); MAGNESIUM 2.6 mg/dL (1.8-2.4); PHOSPHORUS 3.9 mg/dL (2.6-4.7); POTASSIUM,K 4.2 mmol/L (3.5-5.1); PROTEIN TOTAL,TP 6.5 g/dL (6.4-8.2); SODIUM,NA 137 mmol/L (136-145)
[2024-05-07 18:47] LABS: LACTIC ACID 1.7 mmol/L (0.4-2.0)
[2024-05-07 18:48] LABS: A/G RATIO 0.97; C-REACTIVE PROTEIN < 0.50 ng/dL (<=0.50); ESTIMATED GFR 15 mL/min (>=60)
[2024-05-07 18:52] LABS: PROTHROMBIN TIME 10.1 SEC (9.0-12.0); PTT,PARTIAL THROMBOPLSTIN TIME 26.3 SEC (22.0-34.0)
[2024-05-07] MEDS: 50% Dextrose in Water 50 ML Syringe IVPUSH ONE (18:52)
[2024-05-07 18:53] LABS: APPEARANCE,URINE CLEAR (CLEAR); BILIRUBIN,URINE NEGATIVE (NEGATIVE); COLOR,URINE YELLOW (YELLOW); GLUCOSE,URINE NEGATIVE (NEGATIVE); KETONES,URINE NEGATIVE (NEGATIVE); LEUKOCYTE ESTERASE,URINE NEGATIVE (NEGATIVE); NITRITE,URINE NEGATIVE (NEGATIVE); OCCULT BLOOD,URINE NEGATIVE (NEGATIVE); PH,URINE 5.5 (5.0-9.0); PROTEIN,URINE NEGATIVE (NEGATIVE); UROBILINOGEN,URINE 0.2 mg/dL (0.2-1.0)
[2024-05-07 19:00] LABS: HEMOGLOBIN A1C 4.6 % (<5.7)
[2024-05-07] MEDS: Octreotide 100 MCG/ML SDV IVPUSH ONE (19:05)
[2024-05-07] MEDS: Octreotide 100 MCG/ML SDV ONE (19:16)
[2024-05-07 19:25] LABS: LYMPHOCYTES PERCENT MAN 7 % (20-50); MONOCYTES PERCENT MAN 9 % (2-8); SEG NEUTROPHILS PERCENT MAN 84 % (42-75)
[2024-05-07] MEDS ORDERED: HYDROmorphone 0.5 MG/0.5 ML Syringe IVPUSH PRN (21:36)
[2024-05-07] MEDS ORDERED: Acetaminophen 325 MG Tab PO PRN (21:36)
[2024-05-07] MEDS ORDERED: Ondansetron 4 MG/2 ML SDV IVPUSH PRN (21:39)
[2024-05-07] MEDS ORDERED: Metoclopramide 10 MG/2 ML SDV IV PRN (21:39)
[2024-05-07] MEDS ORDERED: Polyethylene Glycol 3350 Powder 17 GM Packet PO PRN (21:39)
[2024-05-07] MEDS ORDERED: Magnesium Hydroxide 400 MG/5 ML Susp 30 ML Cup PO PRN (21:39)
[2024-05-07] MEDS ORDERED: Naloxone 2 MG/2 ML Syringe IVPUSH PRN (21:39)
[2024-05-07] MEDS ORDERED: Sennosides/Docusate Sodium 50-8.6 MG Tab PO PRN (21:39)
[2024-05-07] MEDS: Dextrose 5%-0.9% NaCl 1,000 ML IV SCH (21:40)
[2024-05-07] MEDS ORDERED: 50% Dextrose in Water 50 ML Syringe IVPUSH PRN (21:53)
[2024-05-07] MEDS ORDERED: Glucagon,Human Recombinant 1 MG Vial IM PRN (21:53)
[2024-05-07] MEDS ORDERED: Insulin Lispro 100 Units/ML 3 ML Vial SUBCUT ONE (21:53)
[2024-05-07] MEDS: Midodrine 5 MG Tab PO ONE (22:43)
[2024-05-07] MEDS: Hydrocortisone Sodium Succinate 100 MG/2 ML SDV IVPUSH ONE (22:45)
[2024-05-07] MEDS: Pantoprazole 40 MG Vial IVPUSH ONE (22:47)
[2024-05-07] MEDS: cefTRIAXone 2 GM Vial IVPUSH ONE (22:51)
[2024-05-07] MEDS: Ampicillin/Sulbactam Na 1.5 GM in Sodium Chloride 0.9% 100 ML IV ONE (22:56)
[2024-05-07] MEDS: Melatonin 3 MG Tab PO PRN (22:56)
[2024-05-07] MEDS: Azithromycin 500 MG in Sodium Chloride 0.9% 250 ML IV ONE (23:00)
[2024-05-08] MEDS: Pantoprazole 40 MG Tab.CR PO SCH (06:00)
[2024-05-08] MEDS: Tiotropium Bromide 4 GM Inhalation Spray (2.5mcg/1 dose; 10 doses) INH SCH (06:00)
[2024-05-08] MEDS: Octreotide 100 MCG/ML SDV IVPUSH ONE (06:00)
[2024-05-08] MEDS: Levothyroxine 25 MCG Tab PO SCH (06:00)
[2024-05-08] MEDS: Hydrocortisone Sodium Succinate 100 MG/2 ML SDV IVPUSH SCH (06:00)
[2024-05-08 06:31] LABS: HEMOGLOBIN 8.6 g/dL (14.0-18.0); MEAN CORPUSCULAR HEMOGLOBIN 32.6 pg (27.0-34.0); MEAN CORPUSCULAR HGB CONC 31.9 g/dL (33.0-35.0); MEAN CORPUSCULAR VOLUME 102.3 fL (80-100); PLATELET COUNT,PLT 149 10^3/uL (150-450); RED BLOOD CELL COUNT 2.64 10^6/uL (4.6-6.2); WHITE BLOOD CELL COUNT,WBC 8.9 10^3/uL (5.0-10.0)
[2024-05-08] MEDS: Midodrine 5 MG Tab PO SCH (06:32)
[2024-05-08 06:37] LABS: BASOPHILS PERCENT AUTO 0.2 % (0.0-1.0); MONOCYTES PERCENT AUTO 4.8 % (2-8)
[2024-05-08 06:58] LABS: ALANINE AMINOTRANSFERASE,ALT 39 U/L (16-63); ALBUMIN 3.2 g/dL (3.4-5.0); ALKALINE PHOSPHATASE 100 U/L (46-116); ANION GAP 15.7 mEq/L (7-13); ASPARTATE AMNIOTRANSFERASE,AST 35 U/L (15-37); BILIRUBIN TOTAL 0.4 mg/dL (0.2-1.0); BLOOD UREA NITROGEN,BUN 57 mg/dL (7-18); BUN/CREATININE RATIO 16.7 (No establ ref range); CALCIUM 7.9 mg/dL (8.5-10.1); CARBON DIOXIDE,CO2 21 mmol/L (21-32); CHLORIDE,CL 103 mmol/L (98-107); CREATININE 3.41 mg/dL (0.70-1.30); EST CRCL DRUG DOSING (CG) 14.03 mL/min; GLUCOSE RANDOM 210 mg/dL (70-99); MAGNESIUM 2.6 mg/dL (1.8-2.4); POTASSIUM,K 5.7 mmol/L (3.5-5.1); PROTEIN TOTAL,TP 6.5 g/dL (6.4-8.2); SODIUM,NA 134 mmol/L (136-145)
[2024-05-08 07:11] LABS: A/G RATIO 0.97; C-REACTIVE PROTEIN < 0.50 ng/dL (<=0.50); ESTIMATED GFR 17 mL/min (>=60)
[2024-05-08 07:19] LABS: BAND PERCENT MAN 3 %; LYMPHOCYTES PERCENT MAN 12 % (20-50); MONOCYTES PERCENT MAN 2 % (2-8); SEG NEUTROPHILS PERCENT MAN 83 % (42-75)
[2024-05-08] MEDS: Azithromycin 500 MG in Sodium Chloride 0.9% 250 ML IV SCH (09:09)
[2024-05-08] MEDS: guaiFENesin 600 MG Tab.ER PO SCH (09:13)
[2024-05-08] MEDS: Saccharomyces Boulardii (Probiotic) 250 MG Cap PO SCH (09:13)
[2024-05-08] MEDS: Allopurinol 100 MG Tab PO SCH (09:13)
[2024-05-08] MEDS: buPROPion 150 MG Tab.ER PO SCH (09:13)
[2024-05-08] MEDS: Aspirin 81 MG Tab.Chew PO SCH (09:13)
[2024-05-08] MEDS: Nicotine 21 MG/24 Hr Patch TRDERM SCH (09:19)
[2024-05-08] MEDS: Amiodarone 200 MG Tab PO SCH (09:19)
[2024-05-08] MEDS: Bacitracin/Neomycin/Polymyxin B Oint 28.4 GM Tube TOP SCH (09:19)
[2024-05-08] MEDS: Apixaban 5 MG Tab PO SCH (09:26)
[2024-05-08] MEDS ORDERED: 50% Dextrose in Water 50 ML Syringe IVPUSH PRN (10:27)
[2024-05-08] MEDS ORDERED: Glucagon,Human Recombinant 1 MG Vial IM PRN (10:27)
[2024-05-08] MEDS: Ampicillin/Sulbactam Na 1.5 GM in Sodium Chloride 0.9% 100 ML IV SCH (11:22)
[2024-05-08] MEDS: Sodium Chloride 0.9% 1,000 ML IV SCH (11:34)
[2024-05-08] MEDS: Insulin Lispro 100 Units/ML 3 ML Vial SUBCUT SCH ×2 (12:03→17:15)
[2024-05-08 13:19] LABS: ANION GAP 16.6 mEq/L (7-13); CALCIUM 7.9 mg/dL (8.5-10.1); CREATININE 3.29 mg/dL (0.70-1.30); EST CRCL DRUG DOSING (CG) 14.54 mL/min; POTASSIUM,K 5.6 mmol/L (3.5-5.1)
[2024-05-08] MEDS: Albuterol/Ipratropium 3.0-0.5 MG/3 ML Neb Soln NEB PRN (13:57)
[2024-05-08] MEDS: traZODone 50 MG Tab PO SCH (21:37)
[2024-05-08] MEDS: Acetaminophen/oxyCODONE 325-5 MG Tab PO PRN (23:15)
[2024-05-09 06:20] LABS: BASOPHILS PERCENT AUTO 0.3 % (0.0-1.0); HEMATOCRIT 25.4 % (40.0-54.0); HEMOGLOBIN 8.3 g/dL (14.0-18.0); LYMPHOCYTES PERCENT AUTO 8.7 % (20.5-50.1); MEAN CORPUSCULAR HEMOGLOBIN 33.6 pg (27.0-34.0); MEAN CORPUSCULAR HGB CONC 32.7 g/dL (33.0-35.0); MEAN CORPUSCULAR VOLUME 102.8 fL (80-100); MONOCYTES PERCENT AUTO 7.2 % (2-8); NEUTROPHILS PERCENT AUTO 83.8 % (42.2-75.2); PLATELET COUNT,PLT 144 10^3/uL (150-450); RED BLOOD CELL COUNT 2.47 10^6/uL (4.6-6.2); WHITE BLOOD CELL COUNT,WBC 7.3 10^3/uL (5.0-10.0)
[2024-05-09 06:30] LABS: ALANINE AMINOTRANSFERASE,ALT 34 U/L (16-63); ALBUMIN 3.1 g/dL (3.4-5.0); ALKALINE PHOSPHATASE 91 U/L (46-116); ANION GAP 13.3 mEq/L (7-13); ASPARTATE AMNIOTRANSFERASE,AST 25 U/L (15-37); BILIRUBIN TOTAL 0.5 mg/dL (0.2-1.0); BLOOD UREA NITROGEN,BUN 62 mg/dL (7-18); BUN/CREATININE RATIO 20.3 (No establ ref range); CALCIUM 8.4 mg/dL (8.5-10.1); CARBON DIOXIDE,CO2 23 mmol/L (21-32); CHLORIDE,CL 104 mmol/L (98-107); CREATININE 3.06 mg/dL (0.70-1.30); EST CRCL DRUG DOSING (CG) 15.63 mL/min; GLUCOSE RANDOM 205 mg/dL (70-99); MAGNESIUM 2.5 mg/dL (1.8-2.4); POTASSIUM,K 5.3 mmol/L (3.5-5.1); PROTEIN TOTAL,TP 6.4 g/dL (6.4-8.2); SODIUM,NA 135 mmol/L (136-145)
[2024-05-09 06:48] LABS: A/G RATIO 0.94; C-REACTIVE PROTEIN < 0.50 ng/dL (<=0.50); ESTIMATED GFR 19 mL/min (>=60)
[2024-05-09] MEDS: Apixaban 5 MG Tab PO SCH (09:22)
[2024-05-09] MEDS: Insulin Glarg,Human.Rec.Analog 100 Unit/ML 10 ML Vial SUBCUT SCH (09:23)
[2024-05-09] MEDS: Formoterol/Mometasone 100-5 MCG 8.8 GM Inhaler INH SCH (17:41)
[2024-05-09] MEDS: traZODone 50 MG Tab PO SCH (21:54)
[2024-05-09] MEDS: Sodium Chloride 0.9% 10 ML Syringe FLUSH PRN (22:56)
[2024-05-09] MEDS: Sodium Chloride 0.9% 100 ML IV PRN (22:57)
[2024-05-10 06:16] LABS: HEMATOCRIT 24.5 % (40.0-54.0); HEMOGLOBIN 7.9 g/dL (14.0-18.0); LYMPHOCYTES PERCENT AUTO 12.5 % (20.5-50.1); MEAN CORPUSCULAR HEMOGLOBIN 33.1 pg (27.0-34.0); MEAN CORPUSCULAR HGB CONC 32.2 g/dL (33.0-35.0); MEAN CORPUSCULAR VOLUME 102.5 fL (80-100); MONOCYTES PERCENT AUTO 8.5 % (2-8); NEUTROPHILS PERCENT AUTO 78.5 % (42.2-75.2); PLATELET COUNT,PLT 143 10^3/uL (150-450); RED BLOOD CELL COUNT 2.39 10^6/uL (4.6-6.2); WHITE BLOOD CELL COUNT,WBC 7.7 10^3/uL (5.0-10.0)
[2024-05-10 06:29] LABS: BASOPHILS PERCENT AUTO 0.5 % (0.0-1.0)
[2024-05-10 06:54] LABS: ALANINE AMINOTRANSFERASE,ALT 35 U/L (16-63); ALBUMIN 2.9 g/dL (3.4-5.0); ALKALINE PHOSPHATASE 82 U/L (46-116); ANION GAP 12.2 mEq/L (7-13); ASPARTATE AMNIOTRANSFERASE,AST 22 U/L (15-37); BILIRUBIN TOTAL 0.5 mg/dL (0.2-1.0); BLOOD UREA NITROGEN,BUN 62 mg/dL (7-18); BUN/CREATININE RATIO 24.1 (No establ ref range); CALCIUM 8.4 mg/dL (8.5-10.1); CARBON DIOXIDE,CO2 24 mmol/L (21-32); CHLORIDE,CL 107 mmol/L (98-107); CREATININE 2.57 mg/dL (0.70-1.30); EST CRCL DRUG DOSING (CG) 18.61 mL/min; GLUCOSE RANDOM 170 mg/dL (70-99); MAGNESIUM 2.6 mg/dL (1.8-2.4); POTASSIUM,K 5.2 mmol/L (3.5-5.1); PROTEIN TOTAL,TP 5.9 g/dL (6.4-8.2); SODIUM,NA 138 mmol/L (136-145)
[2024-05-10 07:02] LABS: A/G RATIO 0.97; C-REACTIVE PROTEIN < 0.50 ng/dL (<=0.50); ESTIMATED GFR 24 mL/min (>=60)
[2024-05-10 11:55] VITALS: BP 144/51; PULSE 83
[2024-05-14] MEDS ORDERED: Ergocalciferol (Vitamin D2) 1.25 MG Cap PO SCH (08:30)
== END 2024-05-10 14:00 | disposition home or self-care (01) | DRG 871 ==
LOC: DL.ED 18:01 → DL.MS 19:57
PROVIDERS: ADMIT Internal Medicine; ATTEND Internal Medicine
DX: A41.9 Sepsis, unspecified organism (principal); J18.9 Pneumonia, unspecified organism; I48.20 Chronic atrial fibrillation, unspecified; J44.0 Chronic obstructive pulmonary disease with (acute) lower respiratory infection; J44.1 Chronic obstructive pulmonary disease with (acute) exacerbation; N18.4 Chronic kidney disease, stage 4 (severe); N17.9 Acute kidney failure, unspecified; L03.115 Cellulitis of right lower limb; L03.116 Cellulitis of left lower limb; Z79.890 Hormone replacement therapy; Z66 Do not resuscitate; E83.42 Hypomagnesemia; D69.6 Thrombocytopenia, unspecified; D63.1 Anemia in chronic kidney disease; I12.9 Hypertensive chronic kidney disease with stage 1 through stage 4 chronic kidney disease, or unspecified chronic kidney disease; E11.22 Type 2 diabetes mellitus with diabetic chronic kidney disease; E11.649 Type 2 diabetes mellitus with hypoglycemia without coma; G89.29 Other chronic pain; M54.50 Low back pain, unspecified; E66.9 Obesity, unspecified; M19.90 Unspecified osteoarthritis, unspecified site; K21.9 Gastro-esophageal reflux disease without esophagitis; E78.00 Pure hypercholesterolemia, unspecified; F17.210 Nicotine dependence, cigarettes, uncomplicated; Z98.49 Cataract extraction status, unspecified eye; Z68.34 Body mass index [BMI] 34.0-34.9, adult; Z79.82 Long term (current) use of aspirin; Z79.01 Long term (current) use of anticoagulants; Z79.899 Other long term (current) drug therapy; Z79.52 Long term (current) use of systemic steroids; Z95.810 Presence of automatic (implantable) cardiac defibrillator
CPT/HCPCS: 36415; 71045; 80048; 80053; 81003; 82533; 82947; 83036; 83605; 83735; 84100; 84145; 84484; 85025; 85610; 85730; 86140; 87040; 87070; 87205; 87804; 93005; 94640; 97161-GP; 97165-GO; 99233; 99239; A9270-GY; J0295; J0456; J0696; J1720; J1815-GY; J2354-JA; J2470; J3490; J7030; J7042; J7050; J7620-GY; U0002

== ENCOUNTER 2024-05-30 21:47 | Inpatient (IN) | payer MEDICARE, MEDICAID ==
[2024-05-30] MEDS ORDERED: Sodium Chloride 0.9% 10 ML Syringe FLUSH PRN (21:56)
[2024-05-30 22:09] LABS: BASOPHILS PERCENT AUTO 0.5 % (0.0-1.0); EOSINOPHILS PERCENT AUTO 0.4 % (1.0-3.0); HEMATOCRIT 31.5 % (40.0-54.0); HEMOGLOBIN 10.3 g/dL (14.0-18.0); LYMPHOCYTES PERCENT AUTO 11.4 % (20.5-50.1); MEAN CORPUSCULAR HEMOGLOBIN 32.9 pg (27.0-34.0); MEAN CORPUSCULAR HGB CONC 32.7 g/dL (33.0-35.0); MEAN CORPUSCULAR VOLUME 100.6 fL (80-100); MONOCYTES PERCENT AUTO 10.4 % (2-8); NEUTROPHILS PERCENT AUTO 77.3 % (42.2-75.2); PLATELET COUNT,PLT 167 10^3/uL (150-450); RED BLOOD CELL COUNT 3.13 10^6/uL (4.6-6.2); WHITE BLOOD CELL COUNT,WBC 7.6 10^3/uL (5.0-10.0)
[2024-05-30] MEDS: Albuterol/Ipratropium 3.0-0.5 MG/3 ML Neb Soln NEB ONE (22:17)
[2024-05-30] MEDS: Acetaminophen 500 MG Tab PO ONE (22:17)
[2024-05-30 22:58] LABS: ALBUMIN 3.3 g/dL (3.4-5.0); ANION GAP 13.9 mEq/L (7-13); BILIRUBIN TOTAL 0.9 mg/dL (0.2-1.0); BUN/CREATININE RATIO 19.6 (No establ ref range); C-REACTIVE PROTEIN 0.81 ng/dL (<=0.50); CALCIUM 9.1 mg/dL (8.5-10.1); CREATININE 1.89 mg/dL (0.70-1.30); EST CRCL DRUG DOSING (CG) 26.26 mL/min; MAGNESIUM 1.8 mg/dL (1.8-2.4); POTASSIUM,K 3.9 mmol/L (3.5-5.1); PROTEIN TOTAL,TP 6.6 g/dL (6.4-8.2)
[2024-05-30 22:59] LABS: INR 1.1 (0.9-1.2); LACTIC ACID 2.7 mmol/L (0.4-2.0); PTT,PARTIAL THROMBOPLSTIN TIME 26.4 SEC (22.0-34.0)
[2024-05-30] MEDS: Sodium Chloride 0.9% 500 ML IV SCH (23:16)
[2024-05-31] MEDS: Azithromycin 500 MG in Sodium Chloride 0.9% 250 ML IV ONE (00:24)
[2024-05-31] MEDS: methylPREDNISolone Sodium Succinate 125 MG/2 ML SDV IVPUSH ONE (00:28)
[2024-05-31] MEDS ORDERED: Acetaminophen 325 MG Tab PO PRN (00:36)
[2024-05-31] MEDS ORDERED: Ondansetron 4 MG/2 ML SDV IVPUSH PRN (00:36)
[2024-05-31] MEDS ORDERED: HYDROmorphone 0.5 MG/0.5 ML Syringe IVPUSH PRN (00:36)
[2024-05-31] MEDS ORDERED: Polyethylene Glycol 3350 Powder 17 GM Packet PO PRN (00:36)
[2024-05-31] MEDS ORDERED: Albuterol/Ipratropium 3.0-0.5 MG/3 ML Neb Soln NEB PRN (00:36)
[2024-05-31] MEDS ORDERED: Acetaminophen/oxyCODONE 325-5 MG Tab PO PRN ×2 (00:36→15:58)
[2024-05-31] MEDS ORDERED: Naloxone 2 MG/2 ML Syringe IVPUSH PRN (00:36)
[2024-05-31] MEDS ORDERED: Bisacodyl 5 MG Tab PO PRN (00:36)
[2024-05-31] MEDS ORDERED: Magnesium Hydroxide 400 MG/5 ML Susp 30 ML Cup PO PRN (00:36)
[2024-05-31] MEDS ORDERED: 50% Dextrose in Water 50 ML Syringe IVPUSH PRN (00:43)
[2024-05-31] MEDS ORDERED: Glucagon,Human Recombinant 1 MG Vial IM PRN (00:43)
[2024-05-31] MEDS ORDERED: Ampicillin/Sulbactam Na 1.5 GM in Sodium Chloride 0.9% 100 ML IV SCH (00:45)
[2024-05-31 01:49] LABS: T4 FREE 1.54 ng/dL (0.76-1.46); TSH ULTRASENSITIVE 1.28 uIU/mL (0.36-3.74)
[2024-05-31 01:50] LABS: ETHANOL BLOOD MEDICAL < 3 mg/dL (0)
[2024-05-31] MEDS: Ampicillin/Sulbactam Na 1.5 GM in Sodium Chloride 0.9% 100 ML IV SCH (01:59)
[2024-05-31 04:53] LABS: AMPHETAMINES,URINE NEGATIVE (NEGATIVE); BARBITURATES,URINE NEGATIVE (NEGATIVE); BENZODIAZEPINE,URINE NEGATIVE (NEGATIVE); MDMA (ECSTASY), URINE NEGATIVE (NEGATIVE); METHADONE,URINE NEGATIVE (NEGATIVE); METHAMPHETAMINES,URINE NEGATIVE (NEGATIVE); OPIATES,URINE NEGATIVE (NEGATIVE); OXYCODONE,URINE NEGATIVE (NEGATIVE); PHENCYCLIDINE,URINE NEGATIVE (NEGATIVE); TCA,URINE NEGATIVE (NEGATIVE)
[2024-05-31] MEDS ORDERED: Tiotropium Bromide 4 GM Inhalation Spray (2.5mcg/1 dose; 10 doses) INH SCH (06:00)
[2024-05-31] MEDS ORDERED: Midodrine 5 MG Tab PO SCH ×2 (06:00→16:00)
[2024-05-31] MEDS ORDERED: Formoterol/Mometasone 200-5 MCG 8.8 GM Inhaler INH SCH (06:00)
[2024-05-31 06:35] LABS: BASOPHILS PERCENT AUTO 0.2 % (0.0-1.0); HEMATOCRIT 27.1 % (40.0-54.0); HEMOGLOBIN 8.6 g/dL (14.0-18.0); LYMPHOCYTES PERCENT AUTO 6.3 % (20.5-50.1); MEAN CORPUSCULAR HEMOGLOBIN 32.1 pg (27.0-34.0); MEAN CORPUSCULAR HGB CONC 31.7 g/dL (33.0-35.0); MEAN CORPUSCULAR VOLUME 101.1 fL (80-100); MONOCYTES PERCENT AUTO 1.4 % (2-8); NEUTROPHILS PERCENT AUTO 92.1 % (42.2-75.2); PLATELET COUNT,PLT 127 10^3/uL (150-450); RED BLOOD CELL COUNT 2.68 10^6/uL (4.6-6.2); WHITE BLOOD CELL COUNT,WBC 8.4 10^3/uL (5.0-10.0)
[2024-05-31 06:57] LABS: ALBUMIN 2.8 g/dL (3.4-5.0); ANION GAP 11.6 mEq/L (7-13); BILIRUBIN TOTAL 0.9 mg/dL (0.2-1.0); C-REACTIVE PROTEIN 2.38 ng/dL (<=0.50); CALCIUM 8.7 mg/dL (8.5-10.1); CREATININE 1.85 mg/dL (0.70-1.30); EST CRCL DRUG DOSING (CG) 26.82 mL/min; MAGNESIUM 1.8 mg/dL (1.8-2.4); POTASSIUM,K 3.6 mmol/L (3.5-5.1); PROTEIN TOTAL,TP 5.9 g/dL (6.4-8.2)
[2024-05-31 07:01] LABS: A/G RATIO 0.9
[2024-05-31] MEDS: Sodium Chloride 0.9% 1,000 ML IV SCH (07:37)
[2024-05-31] MEDS: Midodrine 5 MG Tab PO SCH (07:44)
[2024-05-31] MEDS: Insulin Lispro 100 Units/ML 3 ML Vial SUBCUT SCH (08:51)
[2024-05-31] MEDS: Saccharomyces Boulardii (Probiotic) 250 MG Cap PO SCH (08:53)
[2024-05-31] MEDS: guaiFENesin 600 MG Tab.ER PO SCH (08:53)
[2024-05-31] MEDS: Empagliflozin 10 MG Tab PO SCH (08:54)
[2024-05-31] MEDS ORDERED: Dexamethasone 4 MG Tab PO SCH (09:00)
[2024-05-31] MEDS ORDERED: Saccharomyces Boulardii (Probiotic) 250 MG Cap PO SCH (09:00)
[2024-05-31] MEDS ORDERED: guaiFENesin 600 MG Tab.ER PO SCH (09:00)
[2024-05-31] MEDS: Hydrocortisone Sodium Succinate 100 MG/2 ML SDV IVPUSH SCH (12:14)
[2024-05-31] MEDS: buPROPion 150 MG Tab.ER PO SCH (12:41)
[2024-05-31] MEDS: Metoprolol Succinate 50 MG Tab.ER PO SCH ×2 (12:41→22:11)
[2024-05-31] MEDS: Amiodarone 200 MG Tab PO SCH (12:41)
[2024-05-31] MEDS: Furosemide 40 MG Tab PO SCH (13:52)
[2024-05-31] MEDS: Omeprazole 20 MG Cap.CR PO SCH (13:52)
[2024-05-31] MEDS: Non-Formulary Medication 1 Each (Febuxostat [Febuxostat] 40 MG Tablet) PO SCH (13:52)
[2024-05-31] MEDS: Apixaban 5 MG Tab PO SCH (13:52)
[2024-05-31] MEDS ORDERED: Non-Formulary Medication 1 Each (Potassium Chloride [Potassium Chloride] 20 MEQ Tab.Er.Prt PO SCH (21:00)
[2024-05-31] MEDS: Potassium Chloride 10 MEQ Tab.ER PO SCH (22:11)
[2024-05-31] MEDS: traZODone 50 MG Tab PO SCH (22:11)
[2024-05-31] MEDS: Glimepiride 2 MG Tab PO SCH (22:12)
[2024-05-31] MEDS: Formoterol/Mometasone 200-5 MCG 8.8 GM Inhaler INH SCH (22:46)
[2024-05-31] MEDS: Tiotropium Bromide 4 GM Inhalation Spray (2.5mcg/1 dose; 10 doses) INH SCH (22:47)
[2024-06-01 06:22] LABS: BASOPHILS PERCENT AUTO 0.3 % (0.0-1.0); HEMATOCRIT 26.1 % (40.0-54.0); HEMOGLOBIN 8.4 g/dL (14.0-18.0); LYMPHOCYTES PERCENT AUTO 9.1 % (20.5-50.1); MEAN CORPUSCULAR HEMOGLOBIN 32.3 pg (27.0-34.0); MEAN CORPUSCULAR HGB CONC 32.2 g/dL (33.0-35.0); MEAN CORPUSCULAR VOLUME 100.4 fL (80-100); MONOCYTES PERCENT AUTO 8.2 % (2-8); NEUTROPHILS PERCENT AUTO 82.4 % (42.2-75.2); PLATELET COUNT,PLT 131 10^3/uL (150-450); WHITE BLOOD CELL COUNT,WBC 10.3 10^3/uL (5.0-10.0)
[2024-06-01] MEDS: Levothyroxine 25 MCG Tab PO SCH (06:27)
[2024-06-01 06:47] LABS: ALBUMIN 2.6 g/dL (3.4-5.0); ANION GAP 10.8 mEq/L (7-13); BILIRUBIN TOTAL 0.7 mg/dL (0.2-1.0); BUN/CREATININE RATIO 22.2 (No establ ref range); C-REACTIVE PROTEIN 3.43 ng/dL (<=0.50); CALCIUM 8.6 mg/dL (8.5-10.1); CREATININE 1.89 mg/dL (0.70-1.30); EST CRCL DRUG DOSING (CG) 26.26 mL/min; MAGNESIUM 2.1 mg/dL (1.8-2.4); POTASSIUM,K 3.8 mmol/L (3.5-5.1); PROTEIN TOTAL,TP 5.6 g/dL (6.4-8.2)
[2024-06-01 06:48] LABS: A/G RATIO 0.87
[2024-06-01] MEDS ORDERED: atorvaSTATin 10 MG Tab PO SCH ×2 (09:00)
[2024-06-01] MEDS ORDERED: Allopurinol 100 MG Tab PO SCH (09:00)
[2024-06-01] MEDS ORDERED: Lidocaine 5% 700 MG Patch TRDERM SCH (09:00)
[2024-06-01] MEDS ORDERED: Insulin Glarg,Human.Rec.Analog 100 Unit/ML 10 ML Vial SUBCUT SCH (09:00)
[2024-06-01] MEDS ORDERED: Azithromycin 500 MG in Sodium Chloride 0.9% 250 ML IV ONE (09:00)
[2024-06-01] MEDS ORDERED: Levothyroxine 25 MCG Tab PO SCH (09:00)
[2024-06-01] MEDS: Azithromycin 500 MG in Sodium Chloride 0.9% 250 ML IV SCH (10:24)
[2024-06-01] MEDS: Allopurinol 100 MG Tab PO SCH (10:27)
[2024-06-01] MEDS: Aspirin 81 MG Tab.Chew PO SCH (10:28)
[2024-06-02 06:15] LABS: BASOPHILS PERCENT AUTO 0.2 % (0.0-1.0); HEMATOCRIT 27.8 % (40.0-54.0); HEMOGLOBIN 8.9 g/dL (14.0-18.0); LYMPHOCYTES PERCENT AUTO 9.9 % (20.5-50.1); MEAN CORPUSCULAR HEMOGLOBIN 32.4 pg (27.0-34.0); MEAN CORPUSCULAR VOLUME 101.1 fL (80-100); MONOCYTES PERCENT AUTO 8.4 % (2-8); NEUTROPHILS PERCENT AUTO 81.5 % (42.2-75.2); PLATELET COUNT,PLT 158 10^3/uL (150-450); RED BLOOD CELL COUNT 2.75 10^6/uL (4.6-6.2); WHITE BLOOD CELL COUNT,WBC 9.1 10^3/uL (5.0-10.0)
[2024-06-02 06:42] LABS: A/G RATIO 0.84; ALBUMIN 2.7 g/dL (3.4-5.0); ANION GAP 12.5 mEq/L (7-13); BILIRUBIN TOTAL 0.6 mg/dL (0.2-1.0); BUN/CREATININE RATIO 22.4 (No establ ref range); C-REACTIVE PROTEIN 1.82 ng/dL (<=0.50); CALCIUM 8.5 mg/dL (8.5-10.1); CREATININE 1.61 mg/dL (0.70-1.30); EST CRCL DRUG DOSING (CG) 30.82 mL/min; MAGNESIUM 2.3 mg/dL (1.8-2.4); POTASSIUM,K 3.5 mmol/L (3.5-5.1); PROTEIN TOTAL,TP 5.9 g/dL (6.4-8.2)
[2024-06-03 06:39] LABS: HEMATOCRIT 25.9 % (40.0-54.0); HEMOGLOBIN 8.2 g/dL (14.0-18.0); MEAN CORPUSCULAR HEMOGLOBIN 32.4 pg (27.0-34.0); MEAN CORPUSCULAR HGB CONC 31.7 g/dL (33.0-35.0); MEAN CORPUSCULAR VOLUME 102.4 fL (80-100); PLATELET COUNT,PLT 137 10^3/uL (150-450); RED BLOOD CELL COUNT 2.53 10^6/uL (4.6-6.2)
[2024-06-03 06:44] LABS: BASOPHILS PERCENT AUTO 0.3 % (0.0-1.0); LYMPHOCYTES PERCENT AUTO 22.4 % (20.5-50.1); MONOCYTES PERCENT AUTO 17.7 % (2-8); NEUTROPHILS PERCENT AUTO 59.6 % (42.2-75.2)
[2024-06-03 07:00] LABS: ALBUMIN 2.5 g/dL (3.4-5.0); BILIRUBIN TOTAL 0.5 mg/dL (0.2-1.0); BUN/CREATININE RATIO 22.4 (No establ ref range); C-REACTIVE PROTEIN 0.87 ng/dL (<=0.50); CALCIUM 8.4 mg/dL (8.5-10.1); CREATININE 1.47 mg/dL (0.70-1.30); EST CRCL DRUG DOSING (CG) 33.76 mL/min; MAGNESIUM 2.3 mg/dL (1.8-2.4); PROTEIN TOTAL,TP 5.3 g/dL (6.4-8.2)
[2024-06-03 07:01] LABS: A/G RATIO 0.89
[2024-06-03 07:12] LABS: LYMPHOCYTES PERCENT MAN 21 % (20-50); MONOCYTES PERCENT MAN 11 % (2-8); SEG NEUTROPHILS PERCENT MAN 68 % (42-75)
[2024-06-03] MEDS: predniSONE 20 MG Tab PO SCH (09:25)
[2024-06-03 15:28] VITALS: BP 142/61; PULSE 63
[2024-06-06] MEDS ORDERED: Ergocalciferol (Vitamin D2) 1.25 MG Cap PO SCH (08:30)
== END 2024-06-03 15:35 | disposition home or self-care (01) | DRG 871 ==
LOC: DL.ED 21:47 → DL.MS 05-31 00:31 → UNDOADMIN 05-31 00:31 → DL.ED 05-31 00:32 → DL.MS 05-31 00:36
PROVIDERS: ADMIT Internal Medicine; ATTEND Internal Medicine
DX: J18.9 Pneumonia, unspecified organism (principal); A41.53 Sepsis due to Serratia; J15.69 Pneumonia due to other Gram-negative bacteria; J84.114 Acute interstitial pneumonitis; E87.20 Acidosis, unspecified; I13.0 Hypertensive heart and chronic kidney disease with heart failure and stage 1 through stage 4 chronic kidney disease, or unspecified chronic kidney disease; I48.20 Chronic atrial fibrillation, unspecified; J44.1 Chronic obstructive pulmonary disease with (acute) exacerbation; I48.91 Unspecified atrial fibrillation; J44.0 Chronic obstructive pulmonary disease with (acute) lower respiratory infection; Z66 Do not resuscitate; Z68.32 Body mass index [BMI] 32.0-32.9, adult; E11.22 Type 2 diabetes mellitus with diabetic chronic kidney disease; N18.30 Chronic kidney disease, stage 3 unspecified; E78.00 Pure hypercholesterolemia, unspecified; I50.9 Heart failure, unspecified; M19.90 Unspecified osteoarthritis, unspecified site; M54.50 Low back pain, unspecified; G89.29 Other chronic pain; E66.9 Obesity, unspecified; K21.9 Gastro-esophageal reflux disease without esophagitis; I87.2 Venous insufficiency (chronic) (peripheral); F17.210 Nicotine dependence, cigarettes, uncomplicated; Z95.0 Presence of cardiac pacemaker; Z79.01 Long term (current) use of anticoagulants; Z79.82 Long term (current) use of aspirin; Z79.890 Hormone replacement therapy; Z79.899 Other long term (current) drug therapy
CPT/HCPCS: 36415; 71045; 80053; 83605; 83735; 83880; 84145; 84484; 85025; 85610; 85730; 86140; 87040 ×2; 87428; 93005; 96360; 99285; A9270; J0456; J2919; J7040; J7050; 80305-QW; 80307; 82947; 84439; 84443; 87070; 87077; 87186; 87205; 93010; 93306; 99223; 99232; 99239; 99283; J0295; J1720; J1815-GY; J3490; J7030; J7512; J7620-GY